=== PATIENT | female | born 1985 | race Caucasian/White ===

== ENCOUNTER 2016-05-01 13:04 | Emergency (ER) | payer OTHER ==
[2016-05-01 14:37] VITALS: BP 150/84
--- NOTE | 2016-05-01 15:03 | UC ---
Back Pain HPI - HPI Summary HPI Summary: 30 F presents with left neck pain today while doing yoga. It feels better when she doesn't move her neck. She admits to increase in pain throughout the day. She states that her pinky and middle finger fell different but she denies any numbness or tingling. She is left handed. She denies any trauma to the area. She took 600 mg ibuprofen. PMH endometriosis - History of Current Complaint Chief Complaint: UC Stated Complaint: UPPER BACK PAIN Time Seen by Provider: 05/01/16 14:40 Hx Last Menstrual Period: 04/24/16 - Allergies/Home Medications Allergies/Adverse Reactions: Allergies Allergy/AdvReac Type Severity Reaction Status Date / Time No Known Drug Allergy Allergy Unknown Verified 06/09/15 08:55 Reaction Details HAYFEVER Allergy Unknown Uncoded 05/01/16 14:29 Reaction Details PMH/Surg Hx/FS Hx/Imm Hx Endocrine History Of: Denies: Diabetes Cardiovascular History Of: Denies: Hypertension, Congestive Heart Failure GI/ History Of: Denies: Renal Disease Psychological History Of: Reports: Anxiety - ROUTINE AND PRN MEDICATION FOR - Surgical History Surgical History: Yes Surgery Procedure, Year, and Place: Laproscopic removal of two adhesions from pelvic wall, endometriosis- September 2013. WISDOM TEETH REMOVED-REMOVED A TEEN. TONSILLECTOMY-AGE 13 - Family History Known Family History: Negative: Cardiac Disease Family History: NON CONTRIBUTORY - Social History Alcohol Use: Occasionally Alcohol Amount: 2-3 GLASSES Substance Use Type: Marijuana Substance Use Comment - Amount & Last Used: daily Smoking Status (MU): Heavy Every Day Tobacco Smoker Type: Cigarettes Amount Used/How Often: 1/2 PPD Have You Smoked in the Last Year: Yes Household Exposure Type: Cigarettes - Immunization History Most Recent Influenza Vaccination: never Most Recent Tetanus Shot: up to date Review of Systems Constitutional: Negative Respiratory: Negative Cardiovascular: Negative Motor: Decreased ROM - neck due to pain Musculoskeletal: Myalgia - neck All Other Systems Reviewed And Are Negative: Yes Physical Exam Triage Information Reviewed: Yes Appearance: Well-Appearing Vital Signs: Initial Vital Signs Temp 97.9 F 05/01/16 14:31 Pulse 74 05/01/16 14:31 Resp 16 05/01/16 14:31 BP 150/84 05/01/16 14:31 Pulse Ox 100 05/01/16 14:31 Vital Signs Reviewed: Yes ENT: Positive: Normal ENT inspection, Pharynx normal, TMs normal Neck: Positive: Supple, Other: - no midline tenderness, tenderness over trapezius muscle on left side with palpable muscle spasms, decrease ROM of neck due to pain Respiratory: Positive: Lungs clear, Normal breath sounds Cardiovascular: Positive: RRR Musculoskeletal: Positive: Other: - good mica inspector strength, biceps reflex intact, sensation grossly intact, good pulses, capillary refill <2secs, full ROM of elbow, limited of shoulder due to pain Back Pain Course/Dx - Course Course Of Treatment: due to pain not being midline and no trauma discussed xray not necessary, no neuro deficits noted, discussed likely muscle sprain due to occuring during yoga, will treat with short course of muscle relaxers and use ibupforen, encouraged to follow up with primary if no improvement, patient agrees with plan - Differential Dx/Diagnosis Differential Diagnosis/HQI/PQRI: Fracture, Strain, Sprain Provider Diagnoses: neck pain Discharge - Discharge Plan Condition: Good Disposition: HOME Prescriptions: Cyclobenzaprine TAB* [Flexeril TAB*] 10 mg PO TID PRN #8 tab PRN Reason: Pain Patient Education Materials: Cervical Sprain (ED) Referrals: Carol Tom MD [Primary Care Provider] - Additional Instructions: Take muscle relaxers three times a day for 3 days, first dose given urgent care Use ibuprofen or Tylenol for pain every 6 hours ice/heat area, move as much as possible Follow up with primary within 5 days if no improvement Return to urgent care if develop any weakness or any new or worsening symptoms
[2016-05-01] MEDS ORDERED: Cyclobenzaprine TAB* 10 MG PO ONE (15:10)
== END 2016-05-01 15:31 | disposition home or self-care (01) ==
LOC: UCEAST 13:04
DX: M54.2 Cervicalgia (principal); F12.90 Cannabis use, unspecified, uncomplicated; F17.210 Nicotine dependence, cigarettes, uncomplicated
CPT/HCPCS: 99212; A9270-GY; G0463

== ENCOUNTER 2017-04-08 11:32 | Emergency (ER) | payer SELFPAY ==
[2017-04-08 11:59] LABS: ABS Basophils 0 10^3/ul (0-0.2); ABS Eosinophils 0 10^3/ul (0-0.6); ABS Lymphocytes 0.9 10^3/ul (1.0-4.8); ABS Monocytes 0.9 10^3/ul (0-0.8); ABS Neutrophils 17.6 10^3/ul (1.5-7.7); ABS Nucleated RBC 0 10^3/ul; Eosinophil % 0 % (0-6); Hematocrit 39 % (35-47); Hemoglobin 13.3 g/dl (12.0-16.0); Lymphocyte % 4.5 % (25-47); Mean Corpuscular HGB Conc 34 g/dl (31-36); Mean Corpuscular Hemoglobin 32 pg (27-31); Mean Corpuscular Volume 93 fL (80-97); Mean Platelet Volume 8 um3 (7.4-10.4); Nucleated Red Blood Cells % 0; Platelet Count 213 10^3/ul (150-450); Red Blood Count 4.16 10^6/ul (4.0-5.4); Red Cell Distribution Width 13 % (10.5-15); White Blood Count 19.4 10^3/ul (3.5-10.8)
[2017-04-08 12:10] VITALS: BP 138/81
[2017-04-08 12:13] LABS: EGFR Non-African American 95.4 (>60)
--- NOTE | 2017-04-08 13:11 | ED ---
Erika Rodney Julia, scribed for Ramakrishna Case MD on 04/08/17 at 1204 . Complex/Multi-Sys Presentation - HPI Summary HPI Summary: This patient is a 31 year old F BIBA to [facility] due to unexpected at home childbirth around 11:00. EMS reports patient experienced lower abdominal yesterday evening and extreme abdominal pain with vaginal bleeding at 10:30 today. Patient was unaware of and has not received care. Patient states the child "slid out real quick". Patient is /A3, with 2 first trimester miscarriages, and a first trimester surgical . The patient rates the pain 5/10 in severity. - History Of Current Complaint Chief Complaint: EDOBProblems Hx Obtained From: Patient, EMS Onset/Duration: Sudden Onset Timing: Intermittent, Lasting: Location: Pain At: - lower abdomen - Allergies/Home Medications Allergies/Adverse Reactions: Allergies Allergy/AdvReac Type Severity Reaction Status Date / Time No Known Drug Allergy Allergy Unknown Verified 06/09/15 08:55 Reaction Details HAYFEVER Allergy Unknown Uncoded 05/01/16 14:29 Reaction Details PMH/Surg Hx/FS Hx/Imm Hx Endocrine/Hematology History: Reports: Hx Anemia - X 2 IN THE PAST- STATES MORE WHEN WAS YOUNGER Denies: Hx Diabetes Cardiovascular History: Denies: Hx Congestive Heart Failure, Hx Hypertension History: Reports: Other Problems/Disorders - endometriosis Denies: Hx Renal Disease Sensory History: Denies: Hx Contacts or Glasses, Hx Hearing Aid Opthamlomology History: Denies: Hx Contacts or Glasses Psychiatric History: Reports: Hx Anxiety - ROUTINE AND PRN MEDICATION FOR Denies: Hx Eating Disorder, Hx of Violent Episodes Against Others - Surgical History Surgery Procedure, Year, and Place: Laproscopic removal of two adhesions from pelvic wall, endometriosis- September 2013. WISDOM TEETH REMOVED-REMOVED A TEEN. TONSILLECTOMY-AGE 13 Hx Anesthesia Reactions: No - Immunization History Date of Tetanus Vaccine: unknown Infectious Disease History: Yes Infectious Disease History: Reports: Hx Hepatitis - HEPATITIS C, Hx Shingles Denies: Hx Clostridium Difficile, Hx Human Immunodeficiency Virus (HIV), Hx of Known/Suspected MRSA, Hx Tuberculosis, Hx Known/Suspected VRE, Hx Known/ Suspected VRSA, History Other Infectious Disease, Traveled Outside the [place] in Last 30 Days - Family History Known Family History: Negative: Cardiac Disease Family History: NON CONTRIBUTORY - Social History Alcohol Use: Occasionally Alcohol Amount: 2-3 GLASSES a week Hx Substance Use: Yes Substance Use Type: Reports: Marijuana Substance Use Comment - Amount & Last Used: daily Hx Tobacco Use: Yes Smoking Status (MU): Light Every Day Tobacco Smoker Type: Cigarettes Amount Used/How Often: 1/2 PPD Have You Smoked in the Last Year: Yes Review of Systems Negative: Fever Positive: Abdominal Pain Genitourinary: Other - unexpected childbirth All Other Systems Reviewed And Are Negative: Yes Physical Exam - Summary Physical Exam Summary: Appearance: The patient is well-nourished in no acute distress and in no acute pain. Patient appears non-toxic. Skin: The skin is warm and dry and skin color reflects adequate perfusion. HEENT: The head is normocephalic and atraumatic. The pupils are equal and reactive. The conjunctivae are clear and without drainage. Nares are patent and without drainage. Mouth reveals moist mucous membranes and the throat is without erythema and exudate. The external ears are intact. The ear canals are patent and without drainage. The tympanic membranes are intact. Neck: the neck is supple with full range of motion and non-tender. There are no carotid bruits. There is no neck vein distension. Respiratory: Chest is non-tender. Lungs are clear to auscultation and breath sounds are symmetrical and equal. Cardiovascular: Heart is regular rate and rhythm. There is no murmur or rub auscultated. There is no peripheral edema and pulses are symmetrical and equal. Abdomen: The abdomen is soft and non-tender. There are normal bowel sounds heard in all four quadrants and there is no organomegaly palpated. Uterus is firm and tender located 4cm below umbilicus. Musculoskeletal: There is no back tenderness noted. Extremities are non-tender with full range of motion. There is good capillary refill. There is no peripheral edema or calf tenderness elicited. Neurological: Patient is alert and oriented to person, place and time. The patient has symmetrical motor strength in all four extremities. Cranial nerves are grossly intact. Deep tendon reflexes are symmetrical and equal in all four extremities. Psychiatric: The patient has an appropriate affect and does not exhibit any anxiety or depression. Triage Information Reviewed: Yes Vital Signs On Initial Exam: Initial Vitals Temp Pulse Resp BP Pulse Ox 99.1 F 73 18 135/98 99 04/08/17 11:41 04/08/17 11:41 04/08/17 11:41 04/08/17 11:41 04/08/17 11:41 Vital Signs Reviewed: Yes - David Coma Scale Coma Scale Total: 15 Diagnostics - Vital Signs Vital Signs Temp Pulse Resp BP Pulse Ox 04/08/17 11:41 99.1 F 73 18 135/98 99 - Laboratory Lab Results: Lab Results 04/08/17 04/08/17 04/08/17 Range/Units 11:32 11:32 11:32 WBC 19.4 H (3.5-10.8) 10^3/ul RBC 4.16 (4.0-5.4) 10^6/ul Hgb 13.3 (12.0-16.0) g/dl Hct 39 (35-47) % MCV 93 (80-97) fL MCH 32 H (27-31) pg MCHC 34 (31-36) g/dl RDW 13 (10.5-15) % Plt Count 213 (150-450) 10^3/ul MPV 8 (7.4-10.4) um3 Neut % (Auto) 90.6 H (38-83) % Lymph % (Auto) 4.5 L (25-47) % [place] % (Auto) 4.7 (1-9) % Eos % (Auto) 0 (0-6) % Baso % (Auto) 0.2 (0-2) % Absolute Neuts (auto) 17.6 H (1.5-7.7) 10^3/ul Absolute Lymphs (auto) 0.9 L (1.0-4.8) 10^3/ul Absolute Monos (auto) 0.9 H (0-0.8) 10^3/ul Absolute Eos (auto) 0 (0-0.6) 10^3/ul Absolute Basos (auto) 0 (0-0.2) 10^3/ul Absolute Nucleated RBC 0 10^3/ul Nucleated RBC % 0 Sodium 134 (133-145) mmol/L Potassium 3.7 (3.5-5.0) mmol/L Chloride 103 (101-111) mmol/L Carbon Dioxide 23 (22-32) mmol/L Anion Gap 8 (2-11) mmol/L BUN 7 (6-24) mg/dL Creatinine 0.71 (0.51-0.95) mg/dL Est GFR ( Amer) 122.7 (>60) Est GFR (Non-Af Amer) 95.4 (>60) BUN/Creatinine Ratio 9.9 (8-20) Glucose 114 H (70-100) mg/dL Calcium 9.0 (8.6-10.3) mg/dL Total Bilirubin 0.60 (0.2-1.0) mg/dL AST 12 L (13-39) U/L ALT 8 (7-52) U/L Alkaline Phosphatase 104 (34-104) U/L Total Protein 6.7 (6.4-8.9) g/dL Albumin 3.6 (3.2-5.2) g/dL Globulin 3.1 (2-4) g/dL Albumin/Globulin Ratio 1.2 (1-3) TSH 1.32 (0.34-5.60) mcIU/mL Blood Type O Positive Antibody Screen Negative Result Diagrams: 04/08/17 11:32 04/08/17 11:32 Lab Statement: Any lab studies that have been ordered have been reviewed, and results considered in the medical decision making process. Complex Multi-Symp Course/Dx Course Of Treatment: Ms. Sim delivered a baby at home about 45 minutes prior to arrival. She was nontoxic in appearance, not bleeding with the cord protruding on arrival. Her abd was soft, her uterus was palpable 4-5 cms below the umbilicus and firm and tender. She was admitted to OB wor delivery of her placenta with the concern that she may have significant bleeding given the amoun of time since delivery. - Diagnoses Provider Diagnoses: FTND (full term normal delivery) - Physician Notifications Discussed Care Of Patient With: Dr. Wilcox Discharge - Discharge Plan Condition: Stable Disposition: ADMITTED TO [facility] Referrals: Carol Tom MD [Primary Care Provider] - The documentation as recorded by the Erika guerrier Julia accurately reflects the service I personally performed and the decisions made by me, Ramakrishna Case MD.
== END 2017-04-08 11:53 | disposition short-term general hospital (02) ==
LOC: ED 11:32
DX: O80 Encounter for full-term uncomplicated delivery (principal); Z37.0 Single live birth
CPT/HCPCS: 36415; 80053; 84443; 85025; 86592; 86703; 86850; 86900; 86901; 87340; 99282

== ENCOUNTER 2017-04-08 11:58 | Inpatient (IN) | payer SELFPAY ==
[2017-04-08] MEDS ORDERED: Dibucaine 1% 28.35 GM TUBE PR PRN (12:07)
[2017-04-08] MEDS ORDERED: Witch Hazel PAD* JAR TOPICAL PRN (12:07)
[2017-04-08] MEDS ORDERED: Tetan/Diph/Pertus SYR(Tdap)* 0.5 ML SYR(BOOSTRIX) use SYR IM ONE (12:07)
[2017-04-08] MEDS ORDERED: Acetaminophen TAB* 325 MG PO PRN (12:07)
[2017-04-08] MEDS ORDERED: Glycerin ADULT SUPP PR PRN (12:07)
[2017-04-08] MEDS ORDERED: Simethicone TAB* 80 MG TAB.CHEW PO SCH (12:30)
[2017-04-08] MEDS ORDERED: Oxytocin in LR* 20 UNITS/1,000 ML BAG IVPB SCH (13:00)
[2017-04-08] MEDS: Docusate CAP* 100 MG PO SCH (17:20)
[2017-04-09] MEDS: Docusate CAP* 100 MG PO SCH ×4 (08:48→20:53)
[2017-04-09 10:23] LABS: ABS Basophils 0 10^3/ul (0-0.2); ABS Eosinophils 0.1 10^3/ul (0-0.6); ABS Neutrophils 10.8 10^3/ul (1.5-7.7); ABS Nucleated RBC 0 10^3/ul; Eosinophil % 0.5 % (0-6); Hematocrit 38 % (35-47); Lymphocyte % 14.1 % (25-47); Mean Corpuscular HGB Conc 34 g/dl (31-36); Mean Corpuscular Hemoglobin 32 pg (27-31); Mean Corpuscular Volume 94 fL (80-97); Mean Platelet Volume 9 um3 (7.4-10.4); Nucleated Red Blood Cells % 0; Platelet Count 216 10^3/ul (150-450); Red Blood Count 4.03 10^6/ul (4.0-5.4); Red Cell Distribution Width 13 % (10.5-15); White Blood Count 13.9 10^3/ul (3.5-10.8)
[2017-04-09] MEDS: Sertraline* 50 MG TAB PO SCH ×2 (13:16→18:00)
[2017-04-09] MEDS: Ferrous Gluconate TAB* 324 MG TAB PO SCH ×2 (13:17→21:00)
[2017-04-09] MEDS: Ibuprofen TAB* 600 MG PO PRN (15:03)
[2017-04-09] MEDS ORDERED: Mouth Piece, Nicotine* 1 EACH CARTRIDGE INH ONE (21:00)
[2017-04-09] MEDS ORDERED: Nicotine Inhaler* 10 MG AMP Q2H PRN CRAVING INH (21:00)
[2017-04-10] MEDS: Ibuprofen TAB* 600 MG PO PRN ×3 (00:17→23:42)
[2017-04-10] MEDS: Ferrous Gluconate TAB* 324 MG TAB PO SCH (09:39)
[2017-04-10] MEDS: Docusate CAP* 100 MG PO SCH ×3 (09:42→23:42)
[2017-04-10] MEDS ORDERED: Influenza VAC *QUAD* 2017-18* 0.5 ML SYRINGE IM ONE (18:59)
[2017-04-11 03:46] VITALS: BP 128/64
== END 2017-04-10 23:59 | disposition home or self-care (01) | DRG 774 ==
LOC: MCHOB 11:58
PROVIDERS: ADMIT Obstetrics & Gynecology; ATTEND Obstetrics & Gynecology
PROC: 10E0XZZ Delivery of Products of Conception, External Approach (ICD-10-PCS; principal; 2017-04-08)
DX: O73.0 Retained placenta without hemorrhage (principal); Z3A.40 40 weeks gestation of pregnancy
CPT/HCPCS: 36415; 80307; 85025; 86703; 86762; 88307; 90686; 90715; A9270-GY

== ENCOUNTER 2018-06-28 09:35 | Emergency (ER) | payer MEDICAID, OTHER ==
--- NOTE | 2018-06-28 10:25 | ED ---
Abdominal Pain/Female - HPI Summary HPI Summary: This patient is a 32 year old F brought in by ambulance with a chief complaint of constant RUQ pain since 22:00 yesterday. The patient rates the pain 10/10 in severity. Symptoms not alleviated by Ibuprofen. Patient reports multiple episodes of vomiting, chills, lightheadedness, and weakness. Patient denies diarrhea. The patient thinks that this might be an exacerbation of her endometriosis. She had one episode of emesis while in the ED. NKDA. PMHX Endometriosis. - History of Current Complaint Chief Complaint: EDAbdPain Stated Complaint: ABD PAIN PER EMS Time Seen by Provider: 06/28/18 10:11 Hx Obtained From: Patient Hx Last Menstrual Period: 04/24/16 Onset/Duration: Sudden Onset, Lasting Hours Timing: Constant Severity Currently: Severe Pain Intensity: 10 Pain Scale Used: 0-10 Numeric Location: Diffuse Alleviating Factor(s): Nothing Associated Signs and Symptoms: Positive: Vomiting. Negative: Diarrhea Allergies/Adverse Reactions: Allergies Allergy/AdvReac Type Severity Reaction Status Date / Time HAYFEVER Allergy Unknown Uncoded 05/01/16 14:29 Reaction Details PMH/Surg Hx/FS Hx/Imm Hx Endocrine/Hematology History: Reports: Hx Anemia - X 2 IN THE PAST- STATES MORE WHEN WAS YOUNGER, Other Endocrine/Hematological Disorders - endometriosis Denies: Hx Diabetes Cardiovascular History: Denies: Hx Congestive Heart Failure, Hx Hypertension History: Denies: Hx Renal Disease Sensory History: Denies: Hx Contacts or Glasses, Hx Hearing Aid Opthamlomology History: Denies: Hx Contacts or Glasses Psychiatric History: Reports: Hx Anxiety - ROUTINE AND PRN MEDICATION FOR Denies: Hx Eating Disorder, Hx of Violent Episodes Against Others - Surgical History Surgery Procedure, Year, and Place: Laproscopic removal of two adhesions from pelvic wall, endometriosis- September 2013. WISDOM TEETH REMOVED-REMOVED A TEEN. TONSILLECTOMY-AGE 13 Hx Anesthesia Reactions: No - Immunization History Date of Tetanus Vaccine: unknown Infectious Disease History: No Infectious Disease History: Reports: Hx Hepatitis - HEPATITIS C, Hx Shingles Denies: Hx Clostridium Difficile, Hx Human Immunodeficiency Virus (HIV), Hx of Known/Suspected MRSA, Hx Tuberculosis, Hx Known/Suspected VRE, Hx Known/ Suspected VRSA, History Other Infectious Disease, Traveled Outside the [place] in Last 30 Days - Family History Known Family History: Negative: Cardiac Disease Family History: NON CONTRIBUTORY - Social History Alcohol Use: Weekly Alcohol Amount: 2-3 GLASSES a week Hx Substance Use: Yes Substance Use Type: Reports: Marijuana Substance Use Comment - Amount & Last Used: daily Hx Tobacco Use: Yes Smoking Status (MU): Light Every Day Tobacco Smoker Type: Cigarettes Amount Used/How Often: 1/2 PPD Have You Smoked in the Last Year: No Review of Systems Positive: Chills Positive: Abdominal Pain, Vomiting. Negative: Diarrhea Neurological: Other - lightheaded Positive: Weakness All Other Systems Reviewed And Are Negative: Yes Physical Exam - Summary Physical Exam Summary: Appearance: Well appearing, no pain distress Skin: warm, dry, reflects adequate perfusion Head/face: normal Eyes: EOMI, LUZMARIA ENT: normal Neck: supple, non-tender Respiratory: CTA, breath sounds present Cardiovascular: RRR, pulses symmetrical Abdomen: diffuse abdominal tenderness Musculoskeletal: normal, strength/ROM intact Neuro: normal, sensory motor intact, A&Ox3 Triage Information Reviewed: Yes Vital Signs On Initial Exam: Initial Vitals Temp Pulse Resp BP Pulse Ox 97.6 F 77 25 139/111 98 06/28/18 09:37 06/28/18 09:37 06/28/18 09:37 06/28/18 09:37 06/28/18 09:37 Vital Signs Reviewed: Yes Diagnostics - Vital Signs Vital Signs Temp Pulse Resp BP Pulse Ox 06/28/18 09:54 139/111 06/28/18 09:37 97.6 F 77 25 139/111 98 - Laboratory Result Diagrams: 06/28/18 10:37 06/28/18 10:37 Lab Statement: Any lab studies that have been ordered have been reviewed, and results considered in the medical decision making process. - CT Abd/Pelvis CT Interpretation Completed By: Radiologist Summary of CT Findings: Normal appendix. No other masses or fluid collections are noted. There is a right ovarian cyst measuring up to 2.2 cm. ED physician has reviewed this report Re-Evaluation - Re-Evaluation First Eval Re-Evaluation Time: 13:00 Comment: The patient is demanding dilaudid and refusing to do her US. She wants to leave AMA. Abdominal Pain Fem Course/Dx - Course Course Of Treatment: This patient is a 32 year old F brought in by ambulance with a chief complaint of constant RUQ pain since 22:00 yesterday. The patient rates the pain 10/10 in severity. Symptoms not alleviated by Ibuprofen. Patient reports multiple episodes of vomiting, chills, lightheadedness, and weakness. Patient denies diarrhea. CT Abd/pelvis reveals, per radiologist, Normal appendix. No other masses or fluid collections are noted. There is a. right ovarian cyst measuring up to 2.2 cm. Bloodwork/UA obtained. In the ED course the patient was given IV fluids, Morphine, Diphenhydramine, Haloperidol, Iohexol , Metoclopramide, and Ondansetron. Patient left against medical advice. reused further work up demanding dilaudid - Diagnoses Differential Diagnosis: Positive: Appendicitis, Diverticulitis, Ovarian Cyst, Pancreatitis, Renal Colic, Urinary Tract Infection Provider Diagnoses: Abdominal pain Discharge - Sign-Out/Discharge Documenting (check all that apply): Patient Departure - discharge, AMA Patient Received Moderate/Deep Sedation with Procedure: No - Discharge Plan Condition: Fair Disposition: AGAINST MEDICAL ADVICE Patient Education Materials: Abdominal Pain (ED) Referrals: Carol Tom MD [Primary Care Provider] - Additional Instructions: RETURN TO THE EMERGENCY DEPARTMENT FOR WORSENING SYMPTOMS. - Billing Disposition and Condition Condition: FAIR Disposition: Against Medical Advice - Attestation Statements Document Initiated by Scribe: Yes Documenting Scribe: Dong Cabezas Provider For Whom Scribe is Documenting (Include Credential): Solo Marx MD Scribe Attestation: Dong Rodney, scribed for Solo Marx MD on 06/28/18 at 1327. Scribe Documentation Reviewed: Yes Provider Attestation: The documentation as recorded by the Dong guerrier accurately reflects the service I personally performed and the decisions made by Solo bridges MD Status of Scribe Document: Viewed
[2018-06-28] MEDS ORDERED: NS 0.9% 1000 ML** 1,000 ML IV ONE (10:26)
[2018-06-28] MEDS ORDERED: Ondansetron INJ* 2 MG/ML VIAL IV ONE (10:27)
[2018-06-28] MEDS ORDERED: Morphine 10 MG/ML VIAL (1 ml) IV ONE (10:27)
[2018-06-28 10:54] LABS: ABS Basophils 0.1 10^3/ul (0-0.2); ABS Eosinophils 0.1 10^3/ul (0-0.6); ABS Nucleated RBC 0 10^3/ul; Eosinophil % 0.6 %; Hematocrit 47 % (33-41); Hemoglobin 16.2 g/dL (12.0-16.0); Mean Corpuscular HGB Conc 34 g/dL (31-36); Mean Corpuscular Hemoglobin 32 pg (27-31); Mean Corpuscular Volume 94 fL (80-97); Mean Platelet Volume 8.8 fL (7.4-10.4); Nucleated Red Blood Cells % 0; Platelet Count 303 10^3/uL (150-450); Red Blood Count 5.05 10^6 /uL (3.70-4.87); Red Cell Distribution Width 13 % (10.5-15); White Blood Count 20.2 10^3/uL (3.5-10.8)
[2018-06-28 11:10] LABS: ALT 9 U/L (7-52); AST 16 U/L (13-39); Albumin/Globulin Ratio 1.7 (1-3); Alkaline Phosphatase 63 U/L (34-104); Anion Gap 18 mmol/L (2-11); BUN/Creatinine Ratio 18.8 (8-20); Blood Urea Nitrogen 16 mg/dL (6-24); CO2 Carbon Dioxide 16 mmol/L (22-32); Chloride 106 mmol/L (101-111); EGFR African American 93.2 (>60); Glucose 203 mg/dL (70-100); Potassium 3.7 mmol/L (3.5-5.0); Sodium 140 mmol/L (135-145)
[2018-06-28 11:11] LABS: HCG Pregnancy < 0.60 mIU/mL
[2018-06-28] MEDS ORDERED: Metoclopramide IV* 5 MG/ML 2 ML VIAL IV ONE (11:26)
[2018-06-28] MEDS ORDERED: Metoclopramide IV* 5 MG/ML 2 ML VIAL ONE (11:27)
[2018-06-28] MEDS ORDERED: Iohexol 300* (CONTRAST) 10 ML SDV IV ONE (11:59)
[2018-06-28] MEDS ORDERED: Morphine 4 MG/ML VIAL (1 ml) 4 MG/ML VIAL IV STA (12:01)
[2018-06-28] MEDS ORDERED: Haloperidol INJ IV/IM* 5 MG/ML AMP IM ONE (12:03)
[2018-06-28] MEDS ORDERED: diPHENhydraMINE IV* 50 MG/ML 1 ml VIAL (BENADRYL) IM ONE (12:04)
[2018-06-28 12:06] VITALS: BP 165/99
[2018-06-28 13:47] LABS: Urine Appearance Clear; Urine Bilirubin Negative (Negative); Urine Blood Negative (Negative); Urine Color Straw; Urine Glucose 2+(150 mg/dL) (Negative); Urine Ketones 2+ (Negative); Urine Nitrite Negative (Negative); Urine Protein Negative (Negative); Urine Specific Gravity 1.045 (1.010-1.030); Urine Urobilinogen Negative (Negative)
== END 2018-06-28 13:10 | disposition left against medical advice (07) ==
LOC: ED 09:35
DX: R10.11 Right upper quadrant pain (principal); N83.201 Unspecified ovarian cyst, right side; B19.20 Unspecified viral hepatitis C without hepatic coma; F17.210 Nicotine dependence, cigarettes, uncomplicated; F41.9 Anxiety disorder, unspecified; Z53.21 Procedure and treatment not carried out due to patient leaving prior to being seen by health care provider
CPT/HCPCS: 36415; 74177; 80053; 81003; 83690; 84702; 85025; 96361; 96372; 96374; 96375; 96376; 99283; J1200; J1630; J2270; J2405; J2765; Q9967

== ENCOUNTER 2019-02-10 19:35 | Emergency (ER) | payer SELFPAY ==
[2019-02-10] MEDS ORDERED: Ondansetron INJ* 2 MG/ML VIAL IV ONE (19:44)
[2019-02-10] MEDS ORDERED: Morphine 4 MG/ML VIAL (1 ml) 4 MG/ML VIAL IV ONE (19:44)
[2019-02-10] MEDS ORDERED: Morphine 4 MG/ML VIAL (1 ml) 4 MG/ML VIAL IV PRN (19:44)
[2019-02-10] MEDS ORDERED: Ketorolac INJ* 30 MG/ML 1 ML VIAL IV PUSH ONE (19:44)
--- NOTE | 2019-02-10 19:47 | ED ---
Abdominal Pain/Female - HPI Summary HPI Summary: Patient is a 33 y/o F presenting to the ED for a chief complaint of diffuse abdominal pain that began at 09:00 on 02/10/19. Patient describes the abdominal pain as a tearing and sharp sensation which worsened at 18:00. At that time, patient had nausea and vomiting. Patient denies dysuria, headache, or fever. Patient denies any aggravating or alleviating factors. Patient has a PMHx of endometriosis and describes the current pain as similar to pain associated with endometriosis. Patient has a Mirena inserted and has not had a menstrual period for the last 4 years. Patient admits a PSHx of laparoscopic surgery, but denies a PSHx of cholecystectomy or appendectomy. Patient admits tobacco use. - History of Current Complaint Chief Complaint: EDAbdPain Stated Complaint: ABD PAIN PER EMS Time Seen by Provider: 02/10/19 19:42 Hx Obtained From: Patient Hx Last Menstrual Period: 04/24/16 Onset/Duration: Sudden Onset, Still Present Timing: Constant Severity Initially: Moderate Severity Currently: Severe Pain Scale Used: 0-10 Numeric Location: Diffuse Aggravating Factor(s): Nothing Alleviating Factor(s): Nothing Associated Signs and Symptoms: Negative: Urinary Symptoms - Negative dysuria Allergies/Adverse Reactions: Allergies Allergy/AdvReac Type Severity Reaction Status Date / Time No Known Drug Allergies Allergy See Comment Verified 02/10/19 21:23 HAYFEVER Allergy Unknown Uncoded 05/01/16 14:29 Reaction Details PMH/Surg Hx/FS Hx/Imm Hx Previously Healthy: Yes Endocrine/Hematology History: Reports: Hx Anemia - X 2 IN THE PAST- STATES MORE WHEN WAS YOUNGER, Other Endocrine/Hematological Disorders - endometriosis Denies: Hx Diabetes Cardiovascular History: Denies: Hx Congestive Heart Failure, Hx Hypertension History: Reports: Other Problems/Disorders - Endometriosis Denies: Hx Renal Disease Sensory History: Denies: Hx Contacts or Glasses, Hx Legally Blind, Hx Deafness, Hx Hearing Aid Opthamlomology History: Denies: Hx Contacts or Glasses, Hx Legally Blind EENT History: Denies: Hx Deafness Psychiatric History: Reports: Hx Anxiety - ROUTINE AND PRN MEDICATION FOR Denies: Hx Eating Disorder, Hx of Violent Episodes Against Others - Surgical History Surgical History: Yes Surgery Procedure, Year, and Place: Laproscopic removal of two adhesions from pelvic wall, endometriosis- September 2013. WISDOM TEETH REMOVED-REMOVED A TEEN. TONSILLECTOMY-AGE 13 Hx Anesthesia Reactions: No - Immunization History Date of Tetanus Vaccine: unknown Infectious Disease History: Reports: Hx Hepatitis - HEPATITIS C, Hx Shingles Denies: Hx Clostridium Difficile, Hx Human Immunodeficiency Virus (HIV), Hx of Known/Suspected MRSA, Hx Tuberculosis, Hx Known/Suspected VRE, Hx Known/ Suspected VRSA, History Other Infectious Disease - Family History Known Family History: Negative: Cardiac Disease - Social History Occupation: Employed Full-time Lives: With Family Alcohol Use: Weekly Alcohol Amount: 2-3 GLASSES a week Hx Substance Use: Yes Substance Use Type: Reports: Marijuana Substance Use Comment - Amount & Last Used: daily Hx Tobacco Use: Yes Smoking Status (MU): Light Every Day Tobacco Smoker Type: Cigarettes Amount Used/How Often: 1/2 PPD Have You Smoked in the Last Year: No Review of Systems Negative: Fever Positive: Abdominal Pain - Diffuse, Vomiting, Nausea Negative: dysuria Negative: Headache All Other Systems Reviewed And Are Negative: Yes Physical Exam - Summary Physical Exam Summary: Appearance: Well-appearing, Well-nourished. Mildly diaphoretic female lying in the stretcher with obvious pain. Skin: Warm, no obvious rash, mildly diaphoretic, pale. Eyes: sclera anicteric, no conjunctival pallor ENT: mucous membranes moist, pharynx appears normal Neck: Supple, nontender Respiratory: Clear to auscultation, no signs of respiratory distress Cardiovascular: Normal S1, S2. No murmurs. Normal distal pulses in tibial and radial bilaterally. Abdomen: Soft, normal active bowel sounds present. Generalized abdominal tenderness, more in the LLQ. Difficult to get patient relaxed for exam Musculoskeletal: Normal, Strength/ROM Intact Neurological: A&Ox3, awake and alert, mentation is normal, speech is fluent and appropriate Psychiatric: affect is normal, does not appear anxious or depressed Triage Information Reviewed: Yes Vital Signs Reviewed: Yes Procedures - Sedation Patient Received Moderate/Deep Sedation with Procedure: No Diagnostics - Laboratory Result Diagrams: 02/10/19 20:32 02/10/19 20:32 Lab Statement: Any lab studies that have been ordered have been reviewed, and results considered in the medical decision making process. - Ultrasound Transvaginal US Ultrasound Interpretation Completed By: Radiologist Summary of Ultrasound Findings: Transvaginal US IMPRESSION: Dominant follicle left ovary 1.6 cm. No adnexal mass. Color flow and vascular waveforms are documented bilaterally. Reviewed by ED physician. Abdominal Pain Fem Course/Dx - Course Course Of Treatment: Patient is a 33 y/o F presenting to the ED for a chief complaint of diffuse abdominal pain that began at 09:00 on 02/10/19. Patient describes the abdominal pain as a tearing and sharp sensation which worsened at 18:00. At that time, patient had nausea and vomiting. Patient denies dysuria. Patient denies any aggravating or alleviating factors. Patient has a PMHx of endometriosis and describes the current pain as similar to pain associated with endometriosis. Patient has a Mirena inserted and has not had a menstrual period for the last 4 years. Patient admits a PSHx of laparoscopic surgery, but denies a PSHx of cholecystectomy or appendectomy. Patient admits tobacco use. On exam , female lying in the stretcher with obvious pain, generalized abdominal pain, more in the LLQ, difficult to get patient relaxed for exam, mild diaphoretic, pale. In the ED course, patient was given morphine 4 mg IV, ketorolac 10 mg IV , ondansetron 8 mg IV, and prochlorperazine 10 mg IV. Laboratory abnormal findings: WBC 16.9, RBC 4.95, MCH 32, absolute neuts 14.6, absolute monos 0.9, carbon dioxide 17, anion gap 13, glucose 163, total bilirubin 1.10, lipase <10, urine protein 2+, urine ketones 2+, urine leukocyte esterase trace, urine WBC 1+ , urine RBC 1+, urine squamous epith cells present, urine bacteria 2+, urine cannabinoids screen presumptive positive. Transvaginal US IMPRESSION: Dominant follicle left ovary 1.6 cm. No adnexal mass. Color flow and vascular waveforms are documented bilaterally. Patient will be discharged with a diagnosis of endometriosis and abdominal pain. Follow up with PCP in 2 days. - Diagnoses Provider Diagnoses: Endometriosis, Abdominal pain Discharge ED - Sign-Out/Discharge Documenting (check all that apply): Patient Departure - Discharge - Discharge Plan Condition: Good Disposition: HOME Prescriptions: Ondansetron ODT TAB* [Zofran 4 MG Odt TAB*] 8 mg PO Q6H PRN #12 tab.odt PRN Reason: Nausea Patient Education Materials: Irritable Bowel Syndrome (ED), Acute Abdominal Pain (ED) Referrals: Carol Tom MD [Medical Doctor] - As Soon As Possible Additional Instructions: Your blood work did not show any major concerns, and your ultrasound was unremarkable as well. Endometriosis can be very difficult if not impossible to diagnose on the kinds of tests we have at our disposal here in the ED. 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 I have prescribed some zofran to help with the nausea. - Billing Disposition and Condition Condition: GOOD Disposition: Home - Attestation Statements Document Initiated by John: Yes Documenting Scribe: Kirstin Brito Provider For Whom John is Documenting (Include Credential): Ramakrishna Holland MD Scribe Attestation: I, Kirstin Brito, scribed for Ramakrishna Holland MD on 02/13/19 at 1939. Scribe Documentation Reviewed: Yes Provider Attestation: The documentation as recorded by the Kirstin guerrier accurately reflects the service I personally performed and the decisions made by me, Ramakrishna Holland MD Status of Scribe Document: Viewed
[2019-02-10 20:28] LABS: Urine Appearance Cloudy; Urine Bacteria 2+ (Absent); Urine Bilirubin Negative (Negative); Urine Blood Negative (Negative); Urine Color Amber; Urine Glucose Negative (Negative); Urine Ketones 2+ (Negative); Urine Nitrite Negative (Negative); Urine Protein 2+(100 mg/dL) (Negative); Urine Red Blood Cell 1+(3-5/hpf) (Absent); Urine Specific Gravity 1.029 (1.010-1.030); Urine Squamous Epithelial Cell Present (Absent); Urine Urobilinogen Negative (Negative); Urine White Blood Cell 1+(6-10/hpf) (Absent)
[2019-02-10 20:36] LABS: ABS Basophils 0.1 10^3/ul (0-0.2); ABS Lymphocytes 1.3 10^3/ul (1.0-4.8); ABS Monocytes 0.9 10^3/ul (0-0.8); ABS Neutrophils 14.6 10^3/ul (1.5-7.7); Eosinophil % 0.2 %; Hematocrit 46 % (35-47); Hemoglobin 15.6 g/dL (12.0-16.0); Lymphocyte % 7.9 %; Mean Corpuscular HGB Conc 34 g/dL (31-36); Mean Corpuscular Hemoglobin 32 pg (27-31); Mean Corpuscular Volume 93 fL (80-97); Mean Platelet Volume 8.5 fL (7.4-10.4); Nucleated Red Blood Cells % 0.1; Platelet Count 219 10^3/uL (150-450); Red Blood Count 4.95 10^6 /uL (3.70-4.87); Red Cell Distribution Width 13 % (10-15); White Blood Count 16.9 10^3/uL (3.5-10.8)
[2019-02-10 20:55] LABS: Urine Benzodiazepine Screen None Detected (None Detect); Urine Opiates Screen None Detected (None Detect)
[2019-02-10] MEDS ORDERED: PROCHLORPERAZINE INJ 5 MG/ML 2 ML VIAL IV ONE (21:00)
[2019-02-10 21:01] LABS: HCG Pregnancy 0.61 mIU/mL
[2019-02-10 21:04] LABS: ALT 7 U/L (7-52); AST 14 U/L (13-39); Albumin 4.7 g/dL (3.2-5.2); Albumin/Globulin Ratio 1.6 (1-3); Alkaline Phosphatase 56 U/L (34-104); Anion Gap 13 mmol/L (2-11); BUN/Creatinine Ratio 15.7 (8-20); Blood Urea Nitrogen 13 mg/dL (6-24); C Reactive Protein 1.54 mg/L (<8.01); CO2 Carbon Dioxide 17 mmol/L (22-32); Calcium 9.8 mg/dL (8.6-10.3); Chloride 109 mmol/L (101-111); EGFR African American 95.2 (>60); EGFR Non-African American 78.7 (>60); Globulin 2.9 g/dL (2-4); Glucose 163 mg/dL (70-100); Potassium 3.6 mmol/L (3.5-5.0); Sodium 139 mmol/L (135-145); Total Protein 7.6 g/dL (6.4-8.9)
[2019-02-10] MEDS ORDERED: Ondansetron ODT TAB* 4 MG SL ONE (23:28)
[2019-02-10 23:38] VITALS: BP 121/69
== END 2019-02-10 23:37 | disposition home or self-care (01) ==
LOC: ED 19:35
DX: N80.9 Endometriosis, unspecified (principal); R10.9 Unspecified abdominal pain; R11.2 Nausea with vomiting, unspecified; F17.210 Nicotine dependence, cigarettes, uncomplicated; F41.9 Anxiety disorder, unspecified; Z79.899 Other long term (current) drug therapy
CPT/HCPCS: 36415; 76830; 80053; 80307; 81003; 81015; 83690; 84702; 85025; 86140; 87086; 96365; 96375; 96376; 99284; A9270-GY; J0780; J1885; J2270; J2405

== ENCOUNTER 2019-04-24 07:29 | Emergency (ER) | payer OTHER ==
[2019-04-24] MEDS ORDERED: Ondansetron INJ* 2 MG/ML VIAL IV ONE (07:41)
[2019-04-24] MEDS ORDERED: Morphine 4 MG/ML VIAL (1 ml) 4 MG/ML VIAL IV ONE (07:41)
[2019-04-24 08:02] LABS: Hematocrit 40 % (35-47); Hemoglobin 14.1 g/dL (12.0-16.0); Mean Corpuscular HGB Conc 36 g/dL (31-36); Mean Corpuscular Hemoglobin 32 pg (27-31); Mean Corpuscular Volume 90 fL (80-97); Mean Platelet Volume 8.7 fL (7.4-10.4); Platelet Count 226 10^3/uL (150-450); Red Cell Distribution Width 13 % (10-15); White Blood Count 11.6 10^3/uL (3.5-10.8)
--- NOTE | 2019-04-24 08:05 | ED ---
GI/ HPI - HPI Summary HPI Summary: Patient is a 33 y/o F w/ Hx of endometriosis who presents to [facility] via EMS with chief complaint of lower abdominal pain. Pain initially onset 04/22/19. It has waxed and waned in intensity with a significant exacerbation occurring this morning, 04/24/19. Pain radiates towards upper abdomen. EMS administered 15 mg Toradol with no relief in pain. She states that she followed up with CHRISTIANO Morgan, yesterday on 04/23/19 and was advised to come to ED if pain worsened. Patient claims that her current pain feels similar to her past episodes of endometriosis and notes that she experiences episodes every 1-2 months approximately. Patient reports nausea, decreased appetite, constipation, diaphoresis, and subjective fever but denies vomiting, diarrhea, dysuria, vaginal bleeding and vaginal discharge. She states that she has had fever and elevated white count with previous episodes. Laproscopic surgery was done years ago. Patient is concerned for lesions of her intestines. Last CT ABD/PEL is reported to have been May 2018. Patient states that she has been treating pain with ibuprofen with minimal relief and taking Zofran as well as a laxative. She claims that she has been treated for previous episodes with Dilaudid and requests this medication for pain control. LNMP was years ago, patient states that she does not get a regular period. Patient recently started taking oral control. She notes that she has not been sexually active in the past year. With exception of endometriosis, no PMHx noted. NKDA reported. She smokes cigarettes and uses marijuana but denies alcohol usage. 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 Home medications and allergies are reviewed. - History of Current Complaint Stated Complaint: ABD PAIN PER EMS Hx Obtained From: Patient Hx Last Menstrual Period: 04/24/16 Onset/Duration: Started Days Ago, Still Present, Worse Since Timing: Lasting Days Severity: Severe Current Severity: Severe Location of Pain: Radiates to: - upper abdomen, Other - lower abdomen Associated Signs and Symptoms: Positive: Nausea, Constipation, Fever - subjective, Change in Appetite - decreased, Abdominal Pain, Other: - positive - diaphoresis. Negative: Vomiting, Discharge - vaginal, Diarrhea, Dysuria Additional Signs & Symptoms: Negative: Vaginal Bleeding, Vaginal Discharge Alleviating Factor(s): Nothing - Allergy/Home Medications Allergies/Adverse Reactions: Allergies Allergy/AdvReac Type Severity Reaction Status Date / Time No Known Drug Allergies Allergy See Comment Verified 02/10/19 21:23 HAYFEVER Allergy Unknown Uncoded 05/01/16 14:29 Reaction Details Home Medications: Home Medications Levonorgestrel (IUD) (NF) [Mirena (NF)] 20 mcg IU ONCE 04/24/19 [History Confirmed 04/24/19] PMH/Surg Hx/FS Hx/Imm Hx Endocrine/Hematology History: Reports: Hx Anemia - X 2 IN THE PAST- STATES MORE WHEN WAS YOUNGER, Other Endocrine/Hematological Disorders - endometriosis Denies: Hx Diabetes Cardiovascular History: Denies: Hx Congestive Heart Failure, Hx Hypertension History: Reports: Other Problems/Disorders - Endometriosis Denies: Hx Renal Disease Sensory History: Denies: Hx Contacts or Glasses, Hx Legally Blind, Hx Deafness, Hx Hearing Aid Opthamlomology History: Denies: Hx Contacts or Glasses, Hx Legally Blind Psychiatric History: Reports: Hx Anxiety - ROUTINE AND PRN MEDICATION FOR Denies: Hx Eating Disorder, Hx of Violent Episodes Against Others - Surgical History Surgery Procedure, Year, and Place: Laproscopic removal of two adhesions from pelvic wall, endometriosis- September 2013. WISDOM TEETH REMOVED-REMOVED A TEEN. TONSILLECTOMY-AGE 13 Hx Anesthesia Reactions: No - Immunization History Date of Tetanus Vaccine: unknown Infectious Disease History: Reports: Hx Hepatitis - HEPATITIS C, Hx Shingles Denies: Hx Clostridium Difficile, Hx Human Immunodeficiency Virus (HIV), Hx of Known/Suspected MRSA, Hx Tuberculosis, Hx Known/Suspected VRE, Hx Known/ Suspected VRSA, History Other Infectious Disease - Family History Known Family History: Negative: Cardiac Disease - Social History Alcohol Use: Weekly Alcohol Amount: 2-3 GLASSES a week Hx Substance Use: Yes Substance Use Type: Reports: Marijuana Substance Use Comment - Amount & Last Used: daily Hx Tobacco Use: Yes Smoking Status (MU): Light Every Day Tobacco Smoker Type: Cigarettes Amount Used/How Often: 1/2 PPD Have You Smoked in the Last Year: No Review of Systems Positive: Fever - subjective , Skin Diaphoresis Gastrointestinal: Other - positive - constipation, decreased appetite Positive: Abdominal Pain, Nausea. Negative: Vomiting, Diarrhea Genitourinary: Other - negative - vaginal bleeding, vaginal discharge Negative: dysuria All Other Systems Reviewed And Are Negative: Yes Physical Exam - Summary Physical Exam Summary: Constitutional: Well-developed, Well-nourished, Alert. Patient is crying and rolling around in her bed. Skin: Warm, Dry HENT: Normocephalic; Atraumatic Eyes: Conjunctiva normal Neck: Musculoskeletal ROM normal neck. (-) JVD, (-) Stridor, (-) Tracheal deviation Cardio: Rhythm regular, rate normal, Heart sounds normal; Intact distal pulses; Radial pulses are 2+ and symmetric. (-) Murmur Pulmonary/Chest wall: Effort normal. (-) Respiratory distress, (-) Wheezes, (-) Rales Abd: Soft, Diffuse tenderness, worse at LUQ; (-) Distension, (-) Guarding, (-) Rebound Musculoskeletal: (-) Edema Lymph: (-) Cervical adenopathy Neuro: Alert, Oriented x3 Psych: Mood and affect Normal Triage Information Reviewed: Yes Vital Signs Reviewed: Yes Procedures - Sedation Patient Received Moderate/Deep Sedation with Procedure: No Diagnostics - Laboratory Result Diagrams: 04/24/19 07:46 04/24/19 07:46 Lab Statement: Any lab studies that have been ordered have been reviewed, and results considered in the medical decision making process. - CT ABD/PEL CT CT Interpretation Completed By: Radiologist Summary of CT Findings: IMPRESSION: MILD HEPATOMEGALY WITH FATTY INFILTRATION OF THE LIVER. NO ACUTE CT PATHOLOGY OF THE. VISUALIZED ABDOMEN OR PELVIS. THIS REPORT WAS REVIEWED BY ED PHYSICIAN. Re-Evaluation - Re-Evaluation First Eval Re-Evaluation Time: 08:54 Change: Unchanged Comment: Patient had some response to morphine but states that her pain is still present. When the nurse was administering morphine, patient requested that the medication be "pushed fast". Patient was educated on the dangers of having this medication administered too quickly. Other medications were discussed. Bentyl was offered to the patient. She subsequently became agitated and requested more pain medications. She refused to receive any other PO medications. Patient to receive IV Bentyl. Second Eval Re-Evaluation Time: 10:14 Change: Improved Comment: Patient states that her pain is significantly improved after Bentyl. Third Eval Re-Evaluation Time: 10:36 Comment: Results of workup were discussed, patient to be discharged to home and will follow up with GI and PCP. GIGU Course/Dx - Course Course Of Treatment: Patient is here with severe, diffuse of dull pain. Patient 's been here multiple times for presentation last time in May. Patient has been diagnosed with endometriosis years ago and thinks her symptoms are related to that. Patient was rolling on the stretcher in pain and crying profusely. Patient was requesting Dilaudid and Zofran. Patient was given 4 mg of Zofran and 4 mg of morphine with slight improvement that did not last very long. Patient Zenobia performed which grossly unremarkable. Given patient's diffuse a dull pain, a CT scan was obtained which showed no acute process. Patient then received 20 mg of IM Bentyl with vast improvement in her pain. Patient was discharged on Bentyl and given [facility] referral for PCP. Patient already has a referral for a GI doctor that she is told to continue doing a process 4. - Diagnoses Provider Diagnoses: Left sided abdominal pain Discharge ED - Sign-Out/Discharge Documenting (check all that apply): Patient Departure - discharge - Discharge Plan Condition: Stable Disposition: HOME Prescriptions: Dicyclomine CAP* [Bentyl CAP*] 10 mg PO TID PRN #20 cap PRN Reason: abdominal pain Ondansetron ODT TAB* [Zofran 4 MG Odt TAB*] 4 mg PO Q8H PRN #12 tab.odt PRN Reason: Vomiting Patient Education Materials: Acute Abdominal Pain (ED) Referrals: [facility] [Outside] Additional Instructions: USE THE [facility] TO BECOME ESTABLISHED WITH A PRIMARY CARE PHYSICIAN. USE YOUR ESTABLISHED REFERRAL TO FOLLOW UP WITH A GI DOCTOR. TAKE BENTYL PRESCRIBED. PLEASE RETURN TO ED FOR ANY UNEXPECTED RECTAL OR VAGINAL BLEEDING OR ANY OTHER CONCERNING SYMPTOMS. - Billing Disposition and Condition Condition: STABLE Disposition: Home - Attestation Statements Document Initiated by John: Yes Documenting Scribe: DAVIDSON LOPEZ Provider For Whom John is Documenting (Include Credential): YUSUF GARSIA MD Scribe Attestation: DAVIDSON Rodney, marcied for YUSUF GARSIA MD on 04/24/19 at 9000. Scribe Documentation Reviewed: Yes Provider Attestation: The documentation as recorded by the DAVIDSON guerrier accurately reflects the service I personally performed and the decisions made by me, YUSUF GARSIA MD Status of Scribe Document: Viewed
[2019-04-24 08:09] LABS: ABS Basophils 0.1 10^3/ul (0-0.2); ABS Eosinophils 0.1 10^3/ul (0-0.6); ABS Lymphocytes 1.8 10^3/ul (1.0-4.8); ABS Monocytes 0.8 10^3/ul (0-0.8); ABS Neutrophils 8.8 10^3/ul (1.5-7.7); Eosinophil % 0.9 %; Lymphocyte % 15.7 %; Nucleated Red Blood Cells % 0.1
[2019-04-24 08:13] LABS: ALT 6 U/L (7-52); AST 10 U/L (13-39); Albumin 4.3 g/dL (3.2-5.2); Albumin/Globulin Ratio 1.7 (1-3); Alkaline Phosphatase 52 U/L (34-104); Anion Gap 10 mmol/L (2-11); BUN/Creatinine Ratio 11.8 (8-20); Blood Urea Nitrogen 9 mg/dL (6-24); C Reactive Protein 2.72 mg/L (<8.01); CO2 Carbon Dioxide 20 mmol/L (22-32); Chloride 106 mmol/L (101-111); EGFR African American 105.4 (>60); EGFR Non-African American 87.1 (>60); Globulin 2.6 g/dL (2-4); Glucose 117 mg/dL (70-100); Potassium 3.4 mmol/L (3.5-5.0); Sodium 136 mmol/L (135-145); Total Protein 6.9 g/dL (6.4-8.9)
[2019-04-24 08:19] LABS: HCG Pregnancy < 0.60 mIU/mL
[2019-04-24] MEDS ORDERED: Iohexol 300* (CONTRAST) 10 ML SDV IV ONE (08:34)
[2019-04-24] MEDS: Dicyclomine CAP* 10 MG PO ONE ×2 (08:59→09:20)
[2019-04-24] MEDS ORDERED: DICYCLOMINE HCL* 20 MG/2 ML VIAL IM ONE (09:02)
[2019-04-24 10:28] LABS: Urine Appearance Cloudy; Urine Bilirubin Negative (Negative); Urine Blood Negative (Negative); Urine Color Yellow; Urine Glucose Negative (Negative); Urine Ketones 1+ (Negative); Urine Nitrite Negative (Negative); Urine Protein 1+(30 mg/dL) (Negative); Urine Specific Gravity 1.034 (1.010-1.030); Urine Urobilinogen Negative (Negative)
[2019-04-24] MEDS ORDERED: Dicyclomine CAP* 10 MG PO ONE (10:35)
[2019-04-24 10:43] LABS: Urine Bacteria Absent (Absent); Urine Red Blood Cell 1+(3-5/hpf) (Absent); Urine Squamous Epithelial Cell Present (Absent); Urine White Blood Cell Trace(0-5/hpf) (Absent)
[2019-04-24 10:53] VITALS: BP 130/83
== END 2019-04-24 10:53 | disposition home or self-care (01) ==
LOC: ED 07:29
DX: R10.32 Left lower quadrant pain (principal); F17.210 Nicotine dependence, cigarettes, uncomplicated; F41.9 Anxiety disorder, unspecified; Z86.19 Personal history of other infectious and parasitic diseases; K76.0 Fatty (change of) liver, not elsewhere classified
CPT/HCPCS: 36415; 74177; 80053; 81003; 81015; 83605; 84702; 85025; 86140; 87086; 96372; 96374; 96375; 99283; A9270-GY; J0500; J2270; J2405; Q9967

== ENCOUNTER 2019-04-27 11:39 | Emergency (ER) | payer OTHER ==
[2019-04-27] MEDS ORDERED: Dicyclomine CAP* 10 MG PO ONE (12:26)
[2019-04-27] MEDS ORDERED: Ketorolac TAB * 10 MG TAB PO ONE (12:26)
[2019-04-27] MEDS ORDERED: diPHENhydraMINE PO* 25 MG PO ONE (12:27)
[2019-04-27] MEDS ORDERED: Ketorolac *IM* INJ* 60 MG/2 ML VIAL IM ONE (12:33)
[2019-04-27 12:54] LABS: ABS Eosinophils 0.1 10^3/ul (0-0.6); ABS Lymphocytes 1.6 10^3/ul (1.0-4.8); ABS Monocytes 0.5 10^3/ul (0-0.8); ABS Neutrophils 6.4 10^3/ul (1.5-7.7); Eosinophil % 1.3 %; Hematocrit 38 % (35-47); Hemoglobin 13.3 g/dL (12.0-16.0); Lymphocyte % 18.2 %; Mean Corpuscular HGB Conc 35 g/dL (31-36); Mean Corpuscular Hemoglobin 32 pg (27-31); Mean Corpuscular Volume 91 fL (80-97); Mean Platelet Volume 8.6 fL (7.4-10.4); Platelet Count 232 10^3/uL (150-450); Red Cell Distribution Width 13 % (10-15); White Blood Count 8.6 10^3/uL (3.5-10.8)
[2019-04-27 13:11] LABS: Albumin 4.1 g/dL (3.2-5.2); Albumin/Globulin Ratio 1.8 (1-3); BUN/Creatinine Ratio 10.7 (8-20); Calcium 9.3 mg/dL (8.6-10.3); EGFR Non-African American 88.5 (>60); Globulin 2.3 g/dL (2-4); Potassium 3.8 mmol/L (3.5-5.0); Total Bilirubin 0.6 mg/dL (0.2-1.0); Total Protein 6.4 g/dL (6.4-8.9)
--- NOTE | 2019-04-27 14:43 | ED ---
Abdominal Pain/Female - HPI Summary HPI Summary: Patient is a 33-year-old female presenting to the ED with severe diffuse abdominal pain. She states she was here a few days ago with negative blood work and negative CT. She states this feels similar to her endometrial pain, however her pain is now diffuse instead of just located in the bilateral lower quadrants. She is concerned with a gallbladder pathology. She states symptoms are not worse or better after eating. Pain is rated at 10/10. She is followed by Dr. Ladd, ELECTROCARDIOGRAPH OPERATOR and saw them 4 days ago. Denies any fevers, sweats, chills , constipation, nausea, vomiting, diarrhea. Patient is tearful on exam and states she is concerned for "lesions on her intestines" from her severe endometriosis. She has been taking ibuprofen at home with minimal relief. Denies any other significant past mental history. Denies known drug allergies. Denies any alcohol use. She states she smokes cigarettes and also uses marijuana. Symptoms improved after her discharge a few days ago, but returned this morning. - History of Current Complaint Chief Complaint: EDAbdMartyin Stated Complaint: ABDOMINAL PAIN PER EMS Time Seen by Provider: 04/27/19 11:43 Hx Obtained From: Patient Hx Last Menstrual Period: 04/24/16 ?: No Onset/Duration: Sudden Onset Timing: Constant Severity Initially: Severe Severity Currently: Moderate Pain Intensity: 4 Pain Scale Used: 0-10 Numeric Location: Diffuse, Other - abd pain Radiates: No Character: Cramping Aggravating Factor(s): Nothing Alleviating Factor(s): Nothing Associated Signs and Symptoms: Positive: Negative - Risk Factors Ectopic Risk Factor: Negative Ovarian Torsion Risk Factor: Negative Allergies/Adverse Reactions: Allergies Allergy/AdvReac Type Severity Reaction Status Date / Time No Known Drug Allergies Allergy See Comment Verified 04/27/19 11:49 HAYFEVER Allergy Unknown Uncoded 04/27/19 11:49 Reaction Details Home Medications: Home Medications Levonorgestrel-Ethin Estradiol [Lessina-28 Tablet] 1 tab PO DAILY 04/27/19 [ History Confirmed 04/27/19] PMH/Surg Hx/FS Hx/Imm Hx Previously Healthy: Yes Endocrine/Hematology History: Reports: Hx Anemia - X 2 IN THE PAST- STATES MORE WHEN WAS YOUNGER, Other Endocrine/Hematological Disorders - endometriosis Denies: Hx Diabetes Cardiovascular History: Denies: Hx Congestive Heart Failure, Hx Hypertension History: Reports: Other Problems/Disorders - Endometriosis Denies: Hx Renal Disease Sensory History: Denies: Hx Contacts or Glasses, Hx Legally Blind, Hx Deafness, Hx Hearing Aid Opthamlomology History: Denies: Hx Contacts or Glasses, Hx Legally Blind Psychiatric History: Reports: Hx Anxiety - ROUTINE AND PRN MEDICATION FOR Denies: Hx Eating Disorder, Hx of Violent Episodes Against Others - Surgical History Surgery Procedure, Year, and Place: Laproscopic removal of two adhesions from pelvic wall, endometriosis- September 2013. WISDOM TEETH REMOVED-REMOVED A TEEN. TONSILLECTOMY-AGE 13 Hx Anesthesia Reactions: No - Immunization History Date of Tetanus Vaccine: unknown Hx Pertussis Vaccination: No Immunizations Up to Date: Yes Infectious Disease History: No Infectious Disease History: Reports: Hx Hepatitis - HEPATITIS C, Hx Shingles Denies: Hx Clostridium Difficile, Hx Human Immunodeficiency Virus (HIV), Hx of Known/Suspected MRSA, Hx Tuberculosis, Hx Known/Suspected VRE, Hx Known/ Suspected VRSA, History Other Infectious Disease, Traveled Outside the [place] in Last 30 Days - Family History Known Family History: Negative: Cardiac Disease Family History: NON CONTRIBUTORY - Social History Occupation: Employed Full-time Lives: With Family Alcohol Use: Rare Alcohol Amount: 2-3 GLASSES a week Hx Substance Use: Yes Substance Use Type: Reports: Marijuana Substance Use Comment - Amount & Last Used: daily Hx Tobacco Use: Yes Smoking Status (MU): Light Every Day Tobacco Smoker Type: Cigarettes Amount Used/How Often: 1/2 PPD Have You Smoked in the Last Year: No Review of Systems Negative: Fever, Chills, Skin Diaphoresis Negative: Palpitations, Chest Pain Negative: Shortness Of Breath, Cough Genitourinary: Negative Positive: no symptoms reported, see HPI Negative: Arthralgia, Myalgia Neurological: Negative All Other Systems Reviewed And Are Negative: Yes Physical Exam Triage Information Reviewed: Yes Vital Signs On Initial Exam: Initial Vitals Temp Pulse Resp BP Pulse Ox 97.6 F 70 22 118/83 98 04/27/19 11:42 04/27/19 11:42 04/27/19 11:42 04/27/19 11:42 04/27/19 11:42 Vital Signs Reviewed: Yes Appearance: Positive: Well-Appearing, Well-Nourished, Pain Distress Skin: Positive: Warm, Skin Color Reflects Adequate Perfusion Neck: Positive: Supple, No Lymphadenopathy Respiratory/Lung Sounds: Positive: Clear to Auscultation, Breath Sounds Present Cardiovascular: Positive: Pulses are Symmetrical in both Upper and Lower Extremities Abdomen Description: Positive: Other: - tenderness throughout Musculoskeletal: Positive: Strength/ROM Intact Neurological: Positive: Speech Normal Psychiatric: Positive: Affect/Mood Appropriate Procedures - Sedation Patient Received Moderate/Deep Sedation with Procedure: No Diagnostics - Vital Signs Vital Signs Temp Pulse Resp BP Pulse Ox 04/27/19 13:42 56 120/74 100 04/27/19 13:14 59 98 04/27/19 13:12 59 130/75 98 04/27/19 12:44 119/82 04/27/19 12:43 67 123/82 98 04/27/19 12:13 61 132/80 04/27/19 12:00 56 96 04/27/19 11:46 69 118/83 99 04/27/19 11:42 97.6 F 74 22 118/83 98 - Laboratory Lab Results: Lab Results 04/27/19 04/27/19 Range/Units 12:48 12:48 WBC 8.6 (3.5-10.8) 10^3/uL RBC 4.20 (3.70-4.87) 10^6 /uL Hgb 13.3 (12.0-16.0) g/dL Hct 38 (35-47) % MCV 91 (80-97) fL MCH 32 H (27-31) pg MCHC 35 (31-36) g/dL RDW 13 (10-15) % Plt Count 232 (150-450) 10^3/uL MPV 8.6 (7.4-10.4) fL Neut % (Auto) 74.0 % Lymph % (Auto) 18.2 % [place] % (Auto) 6.0 % Eos % (Auto) 1.3 % Baso % (Auto) 0.5 % Absolute Neuts (auto) 6.4 (1.5-7.7) 10^3/ul Absolute Lymphs (auto) 1.6 (1.0-4.8) 10^3/ul Absolute Monos (auto) 0.5 (0-0.8) 10^3/ul Absolute Eos (auto) 0.1 (0-0.6) 10^3/ul Absolute Basos (auto) 0.0 (0-0.2) 10^3/ul Absolute Nucleated RBC 0.0 10^3/ul Nucleated RBC % 0.0 Sodium 138 (135-145) mmol/L Potassium 3.8 (3.5-5.0) mmol/L Chloride 108 (101-111) mmol/L Carbon Dioxide 23 (22-32) mmol/L Anion Gap 7 (2-11) mmol/L BUN 8 (6-24) mg/dL Creatinine 0.75 (0.51-0.95) mg/dL Est GFR ( Amer) 107.0 (>60) Est GFR (Non-Af Amer) 88.5 (>60) BUN/Creatinine Ratio 10.7 (8-20) Glucose 98 (70-100) mg/dL Calcium 9.3 (8.6-10.3) mg/dL Total Bilirubin 0.60 (0.2-1.0) mg/dL AST 11 L (13-39) U/L ALT 11 (7-52) U/L Alkaline Phosphatase 46 (34-104) U/L Total Protein 6.4 (6.4-8.9) g/dL Albumin 4.1 (3.2-5.2) g/dL Globulin 2.3 (2-4) g/dL Albumin/Globulin Ratio 1.8 (1-3) Result Diagrams: 04/27/19 12:48 04/27/19 12:48 Lab Statement: Any lab studies that have been ordered have been reviewed, and results considered in the medical decision making process. Abdominal Pain Fem Course/Dx - Course Course Of Treatment: Patient had blood work and CT 3 days ago. She returns with continuing endometrial pain. She does have a follow-up appointment OB/ ACUTE COORDINATOR. She is concerned that this may be her gallbladder as she is having worsening pain to the right upper quadrant compared with a few days ago when she had bilateral lower quadrant pain. Continues to deny any fevers. States she is otherwise healthy other than her endometrial pain. She took ibuprofen earlier this morning with little relief. On arrival into the ED, labs are obtained. She was given Toradol, Bentyl and Benadryl. On reexamination, patient states she is feeling much improved. She denies any pain currently. Denies any nausea. Labs obtained and are unremarkable. She will be discharged home with diagnosis of endometrial pain and is encouraged ibuprofen and Bentyl at home for relief. - Diagnoses Differential Diagnosis: Positive: Appendicitis, Constipation, Pelvic Inflammatory Disease, Urinary Tract Infection Provider Diagnoses: Endometriosis Discharge ED - Sign-Out/Discharge Documenting (check all that apply): Patient Departure - Discharge Plan Condition: Stable Disposition: HOME Referrals: No Primary Care Phys,NOPCP [Primary Care Provider] - Additional Instructions: Please follow up with OBGYN and GI Continue with Bentyl and ibuprofen as needed for pain you can also try Benadryl for your symptoms - Billing Disposition and Condition Condition: STABLE Disposition: Home
[2019-04-27 14:56] VITALS: BP 120/77
== END 2019-04-27 14:59 | disposition home or self-care (01) ==
LOC: ED 11:39
DX: N80.9 Endometriosis, unspecified (principal); F41.9 Anxiety disorder, unspecified; F17.210 Nicotine dependence, cigarettes, uncomplicated; Z79.899 Other long term (current) drug therapy
CPT/HCPCS: 36415; 80053; 85025; 96372; 99283; A9270-GY; J1885

== ENCOUNTER 2019-05-20 10:01 | Observation (INO) | payer OTHER ==
[2019-05-20] MEDS ORDERED: NS 0.9% 1000 ML** 1,000 ML IV ONE ×2 (10:25→12:50)
[2019-05-20] MEDS ORDERED: Morphine 4 MG/ML VIAL (1 ml) 4 MG/ML VIAL IV ONE ×2 (10:27→11:14)
[2019-05-20] MEDS ORDERED: diPHENhydraMINE IV* 50 MG/ML 1 ml VIAL (BENADRYL) SLOW PUSH ONE ×2 (10:27→12:50)
[2019-05-20] MEDS ORDERED: Ondansetron INJ* 2 MG/ML VIAL IV ONE (10:27)
--- NOTE | 2019-05-20 10:31 | ED ---
Abdominal Pain/Female - HPI Summary HPI Summary: Patient is a 33 y/o F presenting to the ED via EMS for a chief complaint of intermittent right low pelvic pain that most recently began on the morning of . Initially, the pain started on 05/16/19. She notes the abdominal pain later radiated to the right mid abdomen. Patient also reports nausea and vomiting on route to [facility]. On 05/16/[address] Ladd, her MEDICAL BILLING SERVICE, who told the patient to take ibuprofen for the abdominal pain. Patient has a history of endometriosis and patient states this pain is consistent with past pain. Per EMS, patient took Zofran, bentyl, and ibuprofen for the abdominal pain without relief, which patient reports she last took at 08:00. She notes she vomited after taking these medications and does not think it all "stayed down." Last ibuprofen taken had a dosage of 800 mg, taken on 05/20/19. She also reports using marijuana for the abdominal pain on 05/20/19 without relief. On vitals, patient does not have a fever. Patient states Dr. Ladd prescribed continuous oral contraceptives one month ago for her endometriosis. Patient has had several visits to the [facility] for similar symptoms that were associated with her history of endometriosis. Typically, she is given IV fluids, Zofran, and pain medications for her abdominal pain. She notes having an ultrasound in the past to assess her ovaries. She denies having a menstrual period for years. Patient denies alcohol or tobacco use. Allergies to medications are denied. Patients medication reviewed this visit. - History of Current Complaint Chief Complaint: EDAbdPain Stated Complaint: ABD PAIN PER EMS Time Seen by Provider: 05/20/19 10:09 Hx Obtained From: Patient, EMS, Other: - Dianne Navarro | Reference #: [id number] Hx Last Menstrual Period: 04/24/16 Onset/Duration: Sudden Onset, Still Present Timing: Intermittent Episode Lasting Severity Initially: Severe Severity Currently: Severe Pain Intensity: 10 Pain Scale Used: 0-10 Numeric Location: Other - Right lower pelvic Radiates: Yes Radiates to: Other - Right mid abdomen Aggravating Factor(s): Nothing Alleviating Factor(s): Nothing Associated Signs and Symptoms: Positive: Nausea, Vomiting. Negative: Fever - In vitals, 97.4 F Allergies/Adverse Reactions: Allergies Allergy/AdvReac Type Severity Reaction Status Date / Time No Known Drug Allergies Allergy See Comment Verified 05/20/19 10:11 PMH/Surg Hx/FS Hx/Imm Hx Previously Healthy: Yes Endocrine/Hematology History: Reports: Hx Anemia - X 2 IN THE PAST- STATES MORE WHEN WAS YOUNGER, Other Endocrine/Hematological Disorders - endometriosis Denies: Hx Diabetes Cardiovascular History: Denies: Hx Congestive Heart Failure, Hx Hypertension History: Reports: Other Problems/Disorders - Endometriosis Denies: Hx Renal Disease Sensory History: Denies: Hx Contacts or Glasses, Hx Legally Blind, Hx Deafness, Hx Hearing Aid Opthamlomology History: Denies: Hx Contacts or Glasses, Hx Legally Blind EENT History: Denies: Hx Deafness Psychiatric History: Reports: Hx Anxiety - ROUTINE AND PRN MEDICATION FOR Denies: Hx Eating Disorder, Hx of Violent Episodes Against Others - Surgical History Surgical History: Yes Surgery Procedure, Year, and Place: Laproscopic removal of two adhesions from pelvic wall, endometriosis- September 2013. WISDOM TEETH REMOVED-REMOVED A TEEN. TONSILLECTOMY-AGE 13 Hx Anesthesia Reactions: No - Immunization History Date of Tetanus Vaccine: unknown Infectious Disease History: Yes Infectious Disease History: Reports: Hx Hepatitis - HEPATITIS C, Hx Shingles Denies: Hx Clostridium Difficile, Hx Human Immunodeficiency Virus (HIV), Hx of Known/Suspected MRSA, Hx Tuberculosis, Hx Known/Suspected VRE, Hx Known/ Suspected VRSA, History Other Infectious Disease, Traveled Outside the [place] in Last 30 Days - Family History Known Family History: Negative: Cardiac Disease - Social History Occupation: Unemployed Lives: With Family Alcohol Use: Rare Alcohol Amount: 2-3 GLASSES a week Hx Substance Use: Yes Substance Use Type: Reports: Marijuana Substance Use Comment - Amount & Last Used: daily Hx Tobacco Use: Yes Smoking Status (MU): Light Every Day Tobacco Smoker Type: Cigarettes Amount Used/How Often: 1/2 PPD Have You Smoked in the Last Year: No Review of Systems Negative: Fever - In vitals, 97.4 F Positive: Abdominal Pain - Right lower pelvic that radiates to the right mid abdomen, Vomiting, Nausea All Other Systems Reviewed And Are Negative: Yes Physical Exam - Summary Physical Exam Summary: Vital Signs Reviewed: Yes A+Ox3, vomiting, crying, obvious discomfort Eyes: Conjunctiva injected - crying, LUZMARIA. EOM intact and full, ++ tears ENT: Hearing grossly normal TM x 2 clear, mmoist, uvula midline, no exudate, no erythema Neck: Positive: Supple Respiratory: Positive: No respiratory distress, No accessory muscle use + CTA throughout no w/r Cardiovascular: RRR nl s1, s2 no m/r CBT <2 sec abd soft - examined after analgesia - BS nd no guarding, no distension, mild right lower pelvic pain Musculoskeletal Exam: YEAGER x 4 without difficulty Strength Intact, ROM Intact Neurological: Positive: Alert, + sensation throughout Psychological: Positive: Normal Response To examiner Skin: Positive: no rash, no ecchymosis Triage Information Reviewed: Yes Vital Signs On Initial Exam: Initial Vitals Temp Pulse Resp BP Pulse Ox 97.4 F 74 16 167/103 100 05/20/19 10:03 05/20/19 10:03 05/20/19 10:03 05/20/19 10:03 05/20/19 10:03 Vital Signs Reviewed: Yes Procedures - Sedation Patient Received Moderate/Deep Sedation with Procedure: No Diagnostics - Vital Signs Vital Signs Temp Pulse Resp BP Pulse Ox 05/20/19 10:03 97.4 F 74 16 167/103 100 - Laboratory Result Diagrams: 05/21/19 06:51 05/20/19 10:24 Lab Statement: Any lab studies that have been ordered have been reviewed, and results considered in the medical decision making process. - Ultrasound Transvaginal US Ultrasound Interpretation Completed By: Radiologist Summary of Ultrasound Findings: Transvaginal US IMPRESSION: No adnexal masses are noted. IUD appears in place. Reviewed by Dr. Navarro. Re-Evaluation - Re-Evaluation First Eval Re-Evaluation Time: 10:51 Change: Improved Comment: At 10:51, patients pain is improved. She was given ice chips. I will order an ultrasound eval ovary, flow, free fluid Second Eval Re-Evaluation Time: 11:14 Change: Unchanged Comment: At 11:14, patient is requesting additional pain medications. Third Eval Re-Evaluation Time: 11:28 Change: Unchanged Comment: At 11:28, patient is receiving her morphine now, will also give magnesium. no further vomiting Fourth Eval Re-Evaluation Time: 13:22 Change: Unchanged Comment: At 13:22, patient was updated on Dr. Aly's recommendations and was told to call Dr. Ladd's office to make an appointment. Fifth Eval Re-Evaluation Time: 14:03 Change: Unchanged Comment: At 14:03, patient was told she will be discharged. Labs and imaging reviewd. D/w pt homem ed - will give suppository phenerganand short course Tramadol. Pt declined Rx for Naproxyn - states has tried in the past. Also recommended addition of APAP. She was told to call Dr. Ladd for follow up. Pt hesitant for discharge but agreement - called father for ride, Pt did eat 1/2 popsicle Sixth Eval Re-Evaluation Time: 14:24 Change: Unchanged Comment: At 14:24, patient states she has an appointment with GI next week related to her repeated vomiting episodes. Pt with appt Dr. Ladd next week Sixth + Eval Re-Evaluation Time: 15:00 Comment: Pt IV removed, pt sat in wheelchair and had episode of emesis. 250cc. Will discuss with hospitalist regarding observation admission. Updated pt's father and daughter in waiting room - aware Abdominal Pain Fem Course/Dx - Course Course Of Treatment: Patient presents to respond by EMS. Patient with a history of endometriosis with a history of recurrent abdominal pain. Patient states she is being followed closely by Dr. Ladd and has recently started control tried to subdue her symptoms. Patient states she had some pain on Sunday. States she spoke to Dr. Ladd who advised her take Motrin. Patient states she was well until this morning when the pain came back. Patient states his pain is similar to pain she is experiencing the past. Patient states she's been having emesis. Patient's been taking ibuprofen, Bentyl and Zofran at home with little improvement. On exam vital signs are normal. Blood pressure lability related to today's pain. Patient with active vomiting. On exam tenderness in the right low pelvic area. No guarding or rebound. Will check ultrasound for ovarian torsion. We'll check labs urine. We'll give patient IV fluids, Benadryl, morphine, Zofran and reassess. Advised patient would only give 2 doses of morphine in the emergency department. States understanding and agreement. Istop checked. We'll reassess. - Diagnoses Provider Diagnoses: Vomiting, Abdominal pain, Endometriosis - Provider Notifications Discussed Care Of Patient With: Rip Del Angel - At 13:19, Dr. Del Angel suggests using naproxen instead of Motrin, he agrees with the medications given here. He states Dr. Ladd can review her medications. Make sure patient calls to schedule an appointment. At 14:50, Dr. Wade Wilson states he will see the patient in the ED. At 15:50, Dr. Wade Wilson reviewed the patients case and agrees to admit the patient to [facility]. Time Discussed With Above Provider: 13:19 Instructed by Provider To: Have Pt Call For Appt. Discharge ED - Sign-Out/Discharge Documenting (check all that apply): Patient Departure - Admit All imaging exams completed and their final reports reviewed: Yes - Discharge Plan Disposition: ADMITTED TO [facility] - Billing Disposition and Condition Disposition: Admitted to [facility] - Attestation Statements Document Initiated by Siennae: Yes Documenting Scribe: Kirstin Brito Provider For Whom Dougibe is Documenting (Include Credential): Dianne Navarro MD Scribe Attestation: Kirstin Rodney, scribed for Dianne Navraro MD on 05/21/19 at 0718. Scribe Documentation Reviewed: Yes Provider Attestation: The documentation as recorded by the Kirstin guerrier accurately reflects the service I personally performed and the decisions made by , Dianne Navarro MD Status of Scribe Document: Viewed
[2019-05-20 11:03] LABS: HCG Pregnancy < 0.60 mIU/mL
[2019-05-20 11:05] LABS: ABS Eosinophils 0.1 10^3/ul (0-0.6); ABS Lymphocytes 1.7 10^3/ul (1.0-4.8); ABS Monocytes 0.7 10^3/ul (0-0.8); ABS Neutrophils 7.8 10^3/ul (1.5-7.7); Eosinophil % 0.9 %; Hematocrit 42 % (35-47); Hemoglobin 14.8 g/dL (12.0-16.0); Lymphocyte % 16.1 %; Mean Corpuscular HGB Conc 35 g/dL (31-36); Mean Corpuscular Hemoglobin 32 pg (27-31); Mean Corpuscular Volume 92 fL (80-97); Mean Platelet Volume 9.2 fL (7.4-10.4); Platelet Count 246 10^3/uL (150-450); Red Cell Distribution Width 13 % (10-15); White Blood Count 10.3 10^3/uL (3.5-10.8)
[2019-05-20] MEDS ORDERED: Magnesium Sulfate 2 GM IV* 2 GM/50 ML BAG IVPB ONE (11:30)
[2019-05-20] MEDS ORDERED: Ketorolac INJ* 30 MG/ML 1 ML VIAL IV ONE (11:51)
[2019-05-20 11:55] LABS: Albumin 4.6 g/dL (3.2-5.2); Anion Gap 12 mmol/L (2-11); CO2 Carbon Dioxide 17 mmol/L (22-32); Calcium 9.4 mg/dL (8.6-10.3); Chloride 111 mmol/L (101-111); Magnesium 2.1 mg/dL (1.9-2.7); Potassium 3.9 mmol/L (3.5-5.0); Sodium 140 mmol/L (135-145)
[2019-05-20 12:01] LABS: ALT 8 U/L (7-52); AST 12 U/L (13-39); Albumin/Globulin Ratio 1.5 (1-3); Alkaline Phosphatase 46 U/L (34-104); BUN/Creatinine Ratio 14.8 (8-20); Blood Urea Nitrogen 12 mg/dL (6-24); EGFR African American 97.9 (>60); EGFR Non-African American 80.9 (>60); Glucose 115 mg/dL (70-100); Total Protein 7.6 g/dL (6.4-8.9)
[2019-05-20 13:22] LABS: Urine Appearance Cloudy; Urine Bilirubin Negative (Negative); Urine Blood 1+ (Negative); Urine Color Yellow; Urine Glucose 1+(50 mg/dL) (Negative); Urine Ketones 1+ (Negative); Urine Nitrite Negative (Negative); Urine Protein 1+(30 mg/dL) (Negative); Urine Specific Gravity 1.026 (1.010-1.030); Urine Urobilinogen Negative (Negative)
[2019-05-20 13:24] LABS: Urine Bacteria Absent (Absent); Urine Red Blood Cell Trace(0-2/hpf) (Absent); Urine Squamous Epithelial Cell Present (Absent); Urine White Blood Cell Trace(0-5/hpf) (Absent)
[2019-05-20] MEDS ORDERED: Ketorolac INJ* 30 MG/ML 1 ML VIAL IV PUSH PRN (16:04)
[2019-05-20] MEDS: NS 0.9% 1000 ML** 1,000 ML IV SCH (16:25)
[2019-05-20] MEDS: Morphine 10 MG/ML VIAL (1 ml) IV PRN ×3 (16:27→23:59)
[2019-05-20] MEDS: Ondansetron INJ* 2 MG/ML VIAL IV PRN ×2 (16:32→23:59)
[2019-05-20] MEDS ORDERED: diPHENhydraMINE IV* 50 MG/ML 1 ml VIAL (BENADRYL) IV PRN (16:40)
[2019-05-20] MEDS: Metoclopramide IV* 5 MG/ML 2 ML VIAL IV SLOW PU PRN (17:02)
--- NOTE | 2019-05-20 20:10 | HP ---
CC: Dr. Ladd, [facility]; Dr. Angel, [facility] * ADMISSION HISTORY AND PHYSICAL: DATE OF ADMISSION: 05/20/19 CHIEF COMPLAINT: Abdominal pain. HISTORY OF PRESENT ILLNESS: Ms. Sim is a 33-year-old woman with history of endometriosis, who presents to the emergency department today complaining of 10/10 right lower quadrant pain. This bout of pain began 4 days prior to admission and radiated from the right lower quadrant to right upper quadrant. The patient states she has had endometriosis for 11 years and that she has monthly bouts of similar pain. She has established care with Dr. Ladd of [facility] after an ER visit about 1 month ago. She was started on daily control pills 1 month ago. When she called Dr. Ladd's office 4 days ago for advice about abdominal pain, he advised her to take oral ibuprofen, which she has been doing. The patient had nausea yesterday and often has nausea and vomiting accompanying this abdominal pain. She tried smoking marijuana and took oral marijuana as well yesterday without relief of nausea. She does state that she uses marijuana daily and with this she could not find relief consistently for her abdominal pain and vomiting, has to get into a hot bathtub. She has been referred to Gastroenterology by Dr. Ladd and she is supposed to Dr. Valente later this month. In the ER, she was managed with Toradol and morphine IV as well as Benadryl. They had her ready for discharge and then she had vomiting prior to leaving the emergency room, so we were asked to admit the patient. The patient's women's health history includes G3, P1. She had a D and C in June 2015 and had a normal vaginal delivery in April 2017. She states that her right lower quadrant pain resolved during her and . PAST MEDICAL HISTORY: Includes endometriosis. She denies history of asthma, heart problems, hypertension. PAST SURGICAL HISTORY: She has had laparoscopy for diagnostic purposes in [place] with at [facility]. She states she was told tentatively that she had endometriosis at that point. MEDICATIONS ON ADMISSION: 1. Levonorgestrel/ethinyl estradiol (Lessina) 1 tablet daily. 2. Bentyl 10 mg p.o. q.8 hours p.r.n. abdominal pain. 3. Ibuprofen 600 mg p.o. q.6 hours p.r.n. pain. 4. Ondansetron ODT 4 mg p.o. q.8 hours p.r.n. nausea. 5. Promethazine suppository 12.5 mg LA q.6 hours p.r.n. intractable nausea. 6. Tramadol 50 mg p.o. q.8 hours p.r.n. pain. ALLERGIES: None. FAMILY HISTORY: Notable for father with alcoholism. Mother with alcoholism, hypertension. She is the only child. No siblings. Her daughter is healthy. SOCIAL HISTORY: She is disabled. She is single. She has 1 daughter. She lives with her mother and father. She smokes half a pack of cigarettes per day. Drinks alcohol rarely. Recreational drugs, only marijuana, she states about 3 g per day. REVIEW OF SYSTEMS: The patient denies any fevers or weight loss, but has had anorexia. The patient denies any chest pain or palpitations. The patient denies any shortness of breath or cough. The patient denies any diarrhea or constipation, but does have abdominal pain, nausea, vomiting as above. Remainder of 14-point review of systems is negative other than mentioned in the HPI. PHYSICAL EXAMINATION GENERAL: She is a middle-aged woman, curled up in position, crying hysterically in the bed. VITAL SIGNS: Temperature is 36.2, pulse 51 to 61, respirations are 16, blood pressure is 153/96, O2 sat is 99%. HEENT: Head is normocephalic, atraumatic. Oropharynx is moist. No lesions. NECK: Thyroid is not enlarged. No nodules. No adenopathy. No carotid bruits. LUNGS: Clear to auscultation and percussion bilaterally. CHEST: She appears to be hyperventilating. HEART: Regular rate and rhythm without murmurs or gallops. ABDOMEN: Tender in the right lower quadrant. Positive right flank tenderness. No masses. Positive bowel sounds. EXTREMITIES: No peripheral edema. Dorsalis pedis pulses 1+ bilaterally. NEUROLOGIC: Cranial nerves II through XII are intact. Motor strength is 5/5 throughout. Deep tendon reflexes are symmetric. She is alert and oriented x3. DIAGNOSTIC STUDIES/LAB DATA: Sodium 140, potassium 3.9, chloride 111, bicarb 17, BUN 12, creatinine 0.81, glucose 115, calcium 9.4, magnesium 2.1. AST 12, ALT 8. Lactic acid 1.9. HCG is negative. White count 10.3, hemoglobin 14.8, hematocrit 42%, platelets are 246. Urinalysis shows 1+ protein, 1+ ketones, 1+ blood. Transvaginal ultrasound shows no ovarian torsion. The patient had an abdominal CT on previous ER admission on 04/24/19, so this was not repeated today. ASSESSMENT AND PLAN: A 33-year-old woman presenting with abdominal pain and vomiting. Differential would include undertreated endometriosis, gallbladder dysfunction, appendicitis, cyclic vomiting syndrome, or possibly THC-induced hyperemesis. The patient will be admitted to the hospital and have IV fluids to prevent dehydration as well as pain control, antiemetics. We should consider if she does not improve quickly a GI evaluation and gallbladder investigation such as a HIDA scan. She could also have gastritis or ulcer that would not show up on CT. I discussed the case with Dr. Del Angel of Gynecology and he will be asked to see the patient for consultation as well. The question would be whether this pain is really consistent with endometriosis or whether this is more gastrointestinal or psychiatric cause. The patient was advised of the possibility of THC-induced hyperemesis and advised not to use marijuana as a treatment for nausea in her case. Code status is full. DVT prophylaxis will be with early ambulation. [id number]/[facility] #: [id number] MARILEE
--- NOTE | 2019-05-20 22:15 | CONSULT ---
Consult Consult: Mrs. Sim is a 33 y/o with known endometriosis who presented to the emergency room with several days of RLQ abdominal pain not responsive to OTC NSAID's. She was admitted to the hospitalist service for pain control. Due to her history of endometriosis I was consulted for recommendations regarding acute and snf treatment of endometriosis induced pain. Currently she has a Mirena IUD and was started on continuos Oral contraceptives this past sunday for endometriosis. She is amenorrheic due to the Mirena IUD. Past Medical History Past Medical History Comment: Endometriosis Asthma Hypertension Home Medications Mirena IUD Lessina 28 OCP's No Known Drug Allergies Past Surgical History Comment: Diagnostic laparoscopy for endometriosis Family History Comment: Non-contributory Review of Systems - Review of Systems Constitutional: Reports: no symptoms reported - Medications Respiratory: Reports: no symptoms reported Cardiology: Reports: no symptoms reported Gastrointestinal/Abdominal: Reports: abdominal pain - localized, intermittent, sharp pain., nausea Genitourinary: Reports: no symptoms reported Physical Exam - Physical Exam General Appearance: WD/WN, no apparent distress - Vital signs stable and afebrile Respiratory: Lungs clear, Normal breath sounds Gastrointestinal/Abdominal: normal bowel sounds, non tender, soft Back Exam: no vertebral tenderness Neurologic: normal mood/affect, oriented x 3 Lab Results - Lab Results Lab Results: 05/20/19 05/20/19 05/20/19 10:24 10:26 10:26 WBC 10.3 RBC 4.60 Hgb 14.8 Hct 42 MCV 92 MCH 32 H MCHC 35 RDW 13 Plt Count 246 MPV 9.2 Neut % (Auto) 76.3 Lymph % (Auto) 16.1 Alexander % (Auto) 6.4 Eos % (Auto) 0.9 Baso % (Auto) 0.3 Absolute Neuts (auto) 7.8 H Absolute Lymphs (auto) 1.7 Absolute Monos (auto) 0.7 Absolute Eos (auto) 0.1 Absolute Basos (auto) 0.0 Absolute Nucleated RBC 0.0 Nucleated RBC % 0.0 Sodium 140 Potassium 3.9 Chloride 111 Carbon Dioxide 17 L Anion Gap 12 H BUN 12 Creatinine 0.81 Est GFR ( Amer) 97.9 Est GFR (Non-Af Amer) 80.9 BUN/Creatinine Ratio 14.8 Glucose 115 H Lactic Acid 1.9 Calcium 9.4 Magnesium 2.1 Total Bilirubin 0.70 AST 12 L ALT 8 Alkaline Phosphatase 46 Total Protein 7.6 Albumin 4.6 Globulin 3.0 Albumin/Globulin Ratio 1.5 Beta HCG, Quant < 0.60 Urine Color Urine Appearance Urine pH Ur Specific Maple Urine Protein Urine Ketones Urine Blood Urine Nitrate Urine Bilirubin Urine Urobilinogen Ur Leukocyte Esterase Urine WBC (Auto) Urine RBC (Auto) Ur Squamous Epith Cells Urine Bacteria Urine Glucose 05/20/19 13:15 WBC RBC Hgb Hct MCV MCH MCHC RDW Plt Count MPV Neut % (Auto) Lymph % (Auto) Alexander % (Auto) Eos % (Auto) Baso % (Auto) Absolute Neuts (auto) Absolute Lymphs (auto) Absolute Monos (auto) Absolute Eos (auto) Absolute Basos (auto) Absolute Nucleated RBC Nucleated RBC % Sodium Potassium Chloride Carbon Dioxide Anion Gap BUN Creatinine Est GFR ( Amer) Est GFR (Non-Af Amer) BUN/Creatinine Ratio Glucose Lactic Acid Calcium Magnesium Total Bilirubin AST ALT Alkaline Phosphatase Total Protein Albumin Globulin Albumin/Globulin Ratio Beta HCG, Quant Urine Color Yellow Urine Appearance Cloudy Urine pH 5.0 Ur Specific Maple 1.026 Urine Protein 1+(30 mg/dl) A Urine Ketones 1+ A Urine Blood 1+ A Urine Nitrate Negative Urine Bilirubin Negative Urine Urobilinogen Negative Ur Leukocyte Esterase Negative Urine WBC (Auto) Trace(0-5/hpf) Urine RBC (Auto) Trace(0-2/hpf) Ur Squamous Epith Cells Present A Urine Bacteria Absent Urine Glucose 1+(50 mg/dl) A Patient Name: KUSH SIM Medical Record#: [id number] Ordering Physician: Dianne Navarro MD Acct.#: [id number] : 1985 Age: 33 Sex: F Location: EMERGENCY DEPARTMENT Exam Date: 05/20/19 1053 ADM Status: REG ER Order Information: US TRANSVAGINAL Accession Number: [id number] CPT: 54351 Indication: Amenorrhea. Real-time sonography of the pelvis was performed. The uterus measures 8.3 x 3.5 x 4.3 cm. Endometrial echo measures 0.6 cm. IUD appears in place. Right ovary measures 2.7 x 1.2 x 1.8 cm. Left ovary measures 2.8 x 1.7 x 2.0 cm. No adnexal masses are noted. IMPRESSION: No adnexal masses are noted. IUD appears in place. <Electronically signed by Ginger Elizalde MD in OV> 05/20/19 1250 Dictated By: Ginger Elizalde MD Dictated Date/Time: 05/20/19 1247 Transcribed Date/Time: 05/20/19 1247 Impression and Recommendations - Impression and Recommendations Impression and Recommendations: Impression--The Patient is at the time of consultation and evaluation by me very comfortable in no distress. Her Physical exam is unremarkable. Laboratory evaluation CBC, QHCG, Comprehensive metabolic panel and pelvic ultrasound are within normal limits, Urine analysis show blood, ketones, proteinuria, no bacteria, no leukocytes, no nitrates and she denies any urinary symptoms. Recommendations. Patient can be treated as an outpatient for endometriosis I have no additional recommendations for her care during this hospitalization. She should continue current OCP's and Nsaid's (Aleve, Motrin), we discussed use of GNRH agonist and Progestin therapy as alternative treatment for current regimen, along with relevant surgical procedures. The patient declines GNRH agonist and Depo Provera and desires surgical intervention which should be arranged as an outpatient.
[2019-05-21] MEDS: NS 0.9% 1000 ML** 1,000 ML IV SCH (00:31)
[2019-05-21 01:07] LABS: Urine Benzodiazepine Screen None Detected (None Detect); Urine Opiates Screen Presumptive Positive (None Detect)
[2019-05-21] MEDS: Metoclopramide IV* 5 MG/ML 2 ML VIAL IV SLOW PU PRN (04:32)
[2019-05-21 07:10] LABS: ABS Basophils 0.1 10^3/ul (0-0.2); ABS Lymphocytes 2.3 10^3/ul (1.0-4.8); Eosinophil % 0.3 %; Hematocrit 37 % (35-47); Hemoglobin 12.8 g/dL (12.0-16.0); Lymphocyte % 18.3 %; Mean Corpuscular HGB Conc 35 g/dL (31-36); Mean Corpuscular Hemoglobin 32 pg (27-31); Mean Corpuscular Volume 92 fL (80-97); Mean Platelet Volume 9.3 fL (7.4-10.4); Platelet Count 206 10^3/uL (150-450); Red Blood Count 4.04 10^6 /uL (3.70-4.87); Red Cell Distribution Width 13 % (10-15); White Blood Count 12.4 10^3/uL (3.5-10.8)
[2019-05-21 07:28] LABS: Albumin 4.1 g/dL (3.2-5.2); Albumin/Globulin Ratio 1.6 (1-3); BUN/Creatinine Ratio 9.4 (8-20); Calcium 8.5 mg/dL (8.6-10.3); EGFR African American 128.5 (>60); EGFR Non-African American 106.2 (>60); Globulin 2.5 g/dL (2-4); Magnesium 2.2 mg/dL (1.9-2.7); Potassium 3.7 mmol/L (3.5-5.0); Total Bilirubin 0.6 mg/dL (0.2-1.0); Total Protein 6.6 g/dL (6.4-8.9)
[2019-05-21] MEDS: Morphine 10 MG/ML VIAL (1 ml) IV PRN (07:32)
[2019-05-21] MEDS: LEVONORGESTREL ETHIN ESTRADIOL PO SCH (07:52)
[2019-05-21] MEDS ORDERED: Morphine INJ* 2 MG/ML 1 ML SYRINGE (TWO MG - NEW SYRINGE VERSION) IV PRN (08:25)
[2019-05-21] MEDS: hydrOXYzine HCL TAB* 10 MG PO PRN ×2 (09:06→15:30)
[2019-05-21] MEDS: Ondansetron ODT TAB* 4 MG SL PRN (09:06)
[2019-05-21] MEDS: Ketorolac TAB * 10 MG TAB PO SCH ×3 (10:25→22:47)
[2019-05-21] MEDS: Pantoprazole TAB * 40 MG TAB PO SCH (13:06)
[2019-05-21] MEDS: traMADol TAB* 50 MG PO PRN ×2 (13:06→19:36)
[2019-05-21] MEDS: Dicyclomine CAP* 10 MG PO PRN (14:12)
--- NOTE | 2019-05-21 18:19 | PN ---
Subjective Date of Service: 05/21/19 Interval History: Patient states that with just the use of morphine, her pain is not well controlled. Pain is triggering nausea. Spoke with her at length about her monthly cycle of pain that lands her in the emergency room for pain management and how this is not sustainable for quality of live. She agreed to follow up with Dr. Del Angel to further discuss surgical intervention. Her pain control at home consisted of ibuprofen, using the shower head with hot heat point at her abdomen, occasionally using her mom's ativan and smoking cannabis. She has been prescribed bentyl in the past for endometrial pain and found it to be helpful. Per nursing reports, her moods have been very labile, going from crying and distraught in pain to smiling and calm within the same conversation. During evaluation, patient suddenly and without warning spat up a mouth full of gastric contents three separate times and felt no worse or better before or after. No significant heaving. She admitted to occasional retrosternal pain/ burning worse after certain foods, like duy loraine, and worse with lying down. Family History: Unchanged from Admission Social History: Unchanged from Admission Past Medical History: Unchanged from Admission Objective Active Medications: Dicyclomine HCl (Bentyl Cap*) 10 mg PO AC PRN PRN Reason: NAUSEA Last Admin: 05/21/19 14:12 Dose: 10 mg Hydroxyzine HCl (Atarax Tab*) 10 mg PO Q6H PRN PRN Reason: ANXIETY Last Admin: 05/21/19 15:30 Dose: 10 mg Ketorolac Tromethamine (Toradol Tab *) 10 mg PO Q6H [facility] Stop: 05/25/19 14:59 Last Admin: 05/21/19 15:29 Dose: 10 mg Metoclopramide HCl (Reglan Iv*) 10 mg IV SLOW PU Q6H PRN PRN Reason: NAUSEA - REFRACTORY Last Admin: 05/21/19 04:32 Dose: 10 mg Morphine Sulfate (Morphine Inj (Syringe))*) 2 mg IV Q3H PRN PRN Reason: PAIN - SEVERE Non-Formulary Medication (Levonorgestrel-Ethin Estradiol [Lessina-28 Tablet]) 1 tab PO DAILY [facility] Last Admin: 05/21/19 07:52 Dose: Not Given Ondansetron HCl (Zofran Inj*) 4 mg IV Q6H PRN PRN Reason: NAUSEA Last Admin: 05/20/19 23:59 Dose: 4 mg Ondansetron HCl (Zofran Odt Tab*) 4 mg SL Q6H PRN PRN Reason: NAUSEA/VOMITING Last Admin: 05/21/19 09:06 Dose: 4 mg Pantoprazole Sodium (Protonix Tab*) 40 mg PO DAILY ISABEL Last Admin: 05/21/19 13:06 Dose: 40 mg Tramadol HCl (Ultram*) 50 mg PO Q6H PRN PRN Reason: PAIN - MODERATE Last Admin: 05/21/19 13:06 Dose: 50 mg Vital Signs - 8 hr 05/21/19 05/21/19 05/21/19 11:06 11:15 13:06 Temperature 98.3 F Pulse Rate 81 Respiratory 16 16 19 Rate Blood Pressure 121/78 (mmHg) O2 Sat by Pulse 99 Oximetry 05/21/19 05/21/19 05/21/19 14:12 14:42 15:30 Temperature Pulse Rate Respiratory 17 17 17 Rate Blood Pressure (mmHg) O2 Sat by Pulse Oximetry 05/21/19 05/21/19 16:12 17:30 Temperature Pulse Rate Respiratory 16 16 Rate Blood Pressure (mmHg) O2 Sat by Pulse Oximetry Oxygen Devices in Use Now: None Appearance: This is a well developed woman seen sitting up in bed, no acute distress noted. Eyes: No Scleral Icterus, PERRLA Ears/Nose/Mouth/Throat: NL Teeth, Lips, Gums, Clear Oropharnyx, Mucous Membranes Moist Neck: NL Appearance and Movements; NL JVP, Trachea Midline Respiratory: Symmetrical Chest Expansion and Respiratory Effort, Clear to Auscultation Cardiovascular: NL Sounds; No Murmurs; No JVD, RRR, No Edema Abdominal: NL Sounds; No Tenderness; No Distention Lymphatic: No Cervical Adenopathy Extremities: No Edema, No Clubbing, Cyanosis Skin: No Rash or Ulcers, No Nodules or Sclerosis Neurological: Alert and Oriented x 3 Lines/Tubes/Other Access: Clean, Dry and Intact Peripheral IV Result Diagrams: 05/21/19 06:51 05/21/19 06:51 Microbiology and Other Data: Microbiology 05/20/19 13:15 Urine Culture - Final Urine Assess/Plan/Problems-Billing Assessment: This is a 33 year old female with a past medical history significant for endometriosis who was admitted for pain and nausea control secondary to endometriosis on 05/20/19. - Patient Problems (1) Leukocytosis Current Visit: Yes Status: Acute Code(s): D72.829 - ELEVATED WHITE BLOOD CELL COUNT, UNSPECIFIED SNOMED Code(s): 676001580 Comment: -Without fever or other markers of infection. It is possible that this was evidence of a stress response. Will trend with labs in AM. (2) Endometriosis Current Visit: Yes Status: Acute Code(s): N80.9 - ENDOMETRIOSIS, UNSPECIFIED SNOMED Code(s): 589701813 Comment: - Admitted for pain and nausea control. Able to control her pain, nausea and anxiety with a combination of odt zofran, atarax, ketoralac, bentyl and tramadol. Understands she is to use morphine as last resort. - Will follow up with [facility] as an outpatient for surgical intervention. (3) GERD (gastroesophageal reflux disease) Current Visit: Yes Status: Acute Code(s): K21.9 - GASTRO-ESOPHAGEAL REFLUX DISEASE WITHOUT ESOPHAGITIS SNOMED Code(s): 555906764 Comment: - As evidenced by retrosternal burning and pain made wrose by certain foods and laying down. Had been treated in the past. Initiated protonix. (4) DVT prophylaxis Current Visit: Yes Status: Acute Code(s): Z29.9 - ENCOUNTER FOR PROPHYLACTIC MEASURES, UNSPECIFIED SNOMED Code(s): 273966056 Comment: - Low risk, encourage ambulation. (5) Full code status Current Visit: Yes Status: Acute Code(s): Z78.9 - OTHER SPECIFIED HEALTH STATUS SNOMED Code(s): 568103026 Status and Disposition: Dispo: Likely D/C in AM. Condition: Fair Attending: Omayra Garza
[2019-05-22] MEDS: Ketorolac TAB * 10 MG TAB PO SCH ×2 (04:06→09:35)
[2019-05-22 06:54] LABS: ABS Eosinophils 0.1 10^3/ul (0-0.6); ABS Lymphocytes 2.2 10^3/ul (1.0-4.8); ABS Monocytes 0.7 10^3/ul (0-0.8); ABS Neutrophils 5.5 10^3/ul (1.5-7.7); Eosinophil % 1.1 %; Hematocrit 36 % (35-47); Hemoglobin 12.6 g/dL (12.0-16.0); Lymphocyte % 25.8 %; Mean Corpuscular HGB Conc 35 g/dL (31-36); Mean Corpuscular Hemoglobin 32 pg (27-31); Mean Corpuscular Volume 92 fL (80-97); Mean Platelet Volume 8.9 fL (7.4-10.4); Platelet Count 183 10^3/uL (150-450); Red Blood Count 3.92 10^6 /uL (3.70-4.87); Red Cell Distribution Width 13 % (10-15); White Blood Count 8.6 10^3/uL (3.5-10.8)
[2019-05-22 07:20] LABS: BUN/Creatinine Ratio 7.7 (8-20); Calcium 8.5 mg/dL (8.6-10.3); EGFR African American 126.3 (>60); EGFR Non-African American 104.3 (>60); Potassium 3.8 mmol/L (3.5-5.0)
[2019-05-22] MEDS: Dicyclomine CAP* 10 MG PO PRN (07:29)
[2019-05-22] MEDS: traMADol TAB* 50 MG PO PRN (07:29)
[2019-05-22] MEDS: Ondansetron ODT TAB* 4 MG SL PRN (07:29)
[2019-05-22 07:46] VITALS: BP 128/87
[2019-05-22] MEDS: LEVONORGESTREL ETHIN ESTRADIOL PO SCH (09:35)
[2019-05-22] MEDS: Pantoprazole TAB * 40 MG TAB PO SCH (09:35)
--- NOTE | 2019-05-22 11:59 | DS ---
CC: Dr. Micha Ladd; Dr. Issa Valente * DISCHARGE SUMMARY: DATE OF ADMISSION: 05/20/19 DATE OF DISCHARGE: 05/22/19 PRIMARY CARE PROVIDER: None. LUMBER RACKER: Dr. Micha Ladd. SECTION FOREST FIRE WARDEN: Dr. Issa Valente. ATTENDING PHYSICIAN: Dr. Omayra Garza.* (DICTATED BY SHRADDHA BENITES NP) PRIMARY DIAGNOSIS: Intractable abdominal pain secondary to endometriosis. SECONDARY DIAGNOSIS: Gastroesophageal reflux disease. STUDIES WHILE IN THE HOSPITAL: Transvaginal ultrasound on 05/20/19 reads as no adnexal masses are noted. IUD appears in place. CONSULTATIONS WHILE IN THE HOSPITAL: Dr. Del Angel with Gastroenterology. HISTORY OF PRESENT ILLNESS AND HOSPITAL COURSE: Ms. Sim is a 33-year-old female with past medical history of severe endometriosis, who presented to the emergency room on 05/20/19 with complaints of abdominal pain. Please see the history and physical by Dr. Wilson for complete summary of the events leading up to this hospitalization. In short, the patient frequently comes into the emergency room with complaints of abdominal pain secondary to endometriosis. She complained of her typical pain on the day of presentation, which was able to be managed somewhat in the emergency room, although the patient did then begin vomiting, and because of her intractable pain and inability to tolerate p.o. intake, she was admitted by the hospitalist service. The patient was given IV fluids, pain control, and antiemetics to manage her symptoms. She was seen in consultation by Dr. Del Angel from Gynecology on . At that point, he felt as though the patient could be treated as an outpatient, he had no further recommendations for inpatient care. He recommended that she continue her current oral contraceptives and NSAIDs. He did discuss with her further medical management of endometriosis and possible surgical option, which could be arranged outpatient. The patient remained in the hospital another night to ensure resolution of symptoms. As of this morning , she reports feeling well. She has no further complaints of abdominal pain and has been able to tolerate p.o. intake. She is anxious to return home. PHYSICAL EXAMINATION: On exam, she is alert and oriented x4 with no focal neurological deficits. Heart is regular rate and rhythm without murmurs, rubs, or gallops. Lungs are clear to auscultation without rhonchi, wheezes, or rubs. Abdomen is soft, mildly tender to palpation to lower quadrant. Bowel sounds are normoactive. Physical exam is otherwise benign. Ms. Sim is stable for discharge. Most recent vitals are as follows: Temp 98.2, heart rate 78, respiratory rate 16, oxygen saturation 99% on room air, blood pressure 128/87. DISCHARGE MEDICATIONS: New: 1. Dicyclomine 10 mg p.o. q.8 hours p.r.n. pain. 2. Ondansetron 4 mg p.o. q.6 hours p.r.n. nausea, vomiting. 3. Phenergan 12.5 mg SD q.6 hours p.r.n. nausea, vomiting. 4. Tramadol 50 mg p.o. q.8 hours p.r.n. pain. Continued: 1. Levonorgestrel-ethinyl estradiol 1 tab p.o. daily. 2. Ibuprofen 600 mg p.o. q.6 hours p.r.n. pain. DISCHARGE PLAN: Ms. Sim will be discharged home. Activity will be as tolerated. Diet will be regular, as tolerated. Medications are noted above. Prescriptions were already sent in from the emergency room for dicyclomine, Zofran, Phenergan, and tramadol (only 10 tablets) and she can use these medications as needed. I have sent in another 30 tablets of Zofran for her to use as needed. She will need to follow up closely with Dr. Ladd to determine further treatment options for her endometriosis to avoid further trips to the emergency room. She does not have a primary care provider and has been set up with [facility] and has an appointment on 06/03/19 at 9 a.m. She additionally is seeing Dr. Valente and can continue seeing him as previously advised. She should return to the emergency room or nearest hospital for any worsening of symptoms, shortness of breath, lightheadedness, dizziness, chest discomfort, high fevers, chills, night sweats, loss of consciousness, any other worrisome signs or symptoms. DISCHARGE CONDITION: Stable. DISCHARGE DISPOSITION: Home. This is a summarized report of a complex medical history and hospital stay. For further details, please see the entire medical record. TIME SPENT: Approximately 40 minutes was spent on this discharge. SHRADDHA BENITES, TECHNICAL MARKETING ENGINEER [id number]/[facility] #: [id number] MARILEE
== END 2019-05-22 10:45 | disposition home or self-care (01) ==
LOC: ED 10:01 → MED 15:57
PROVIDERS: ADMIT Internal Medicine; ATTEND Internal Medicine
DX: N80.9 Endometriosis, unspecified (principal); R11.2 Nausea with vomiting, unspecified; K21.9 Gastro-esophageal reflux disease without esophagitis; D72.89 Other specified disorders of white blood cells; Z79.899 Other long term (current) drug therapy; I10 Essential (primary) hypertension; F17.210 Nicotine dependence, cigarettes, uncomplicated
CPT/HCPCS: 36415; 76830; 80048; 80053; 80307; 81003; 81015; 83605; 83735; 84702; 85025; 87086; 96361; 96365; 96375; 96376; 99284; A9270-GY; G0378; G0480; J1200; J1885; J2270; J2405; J2765; J3475

== ENCOUNTER 2019-06-16 11:51 | Emergency (ER) | payer OTHER ==
--- NOTE | 2019-06-16 11:58 | ED ---
Abdominal Pain/Female - HPI Summary HPI Summary: 33 year old F presenting to [facility] via EMS with a chief complaint of abdominal pain, diaphoresis, nausea, and vomiting. The patient rates the pain 10/10 in severity. Symptoms aggravated by nothing. Symptoms alleviated by nothing. Patient reports a history of endometriosis and that she was hospitalized here last month for similar symptoms. She states that she gets similar pain every month. She is scheduled to have an ablation on July 03. Medication list reviewed. Allergy list reviewed. - History of Current Complaint Stated Complaint: GENERAL PER PT Time Seen by Provider: 06/16/19 11:53 Hx Obtained From: Patient Hx Last Menstrual Period: 04/24/16 Onset/Duration: Still Present Timing: Constant Severity Initially: Severe Severity Currently: Severe Pain Intensity: 10 Pain Scale Used: 0-10 Numeric Location: Epigastric Aggravating Factor(s): Nothing Alleviating Factor(s): Nothing Associated Signs and Symptoms: Positive: Diaphoresis, Nausea, Vomiting Allergies/Adverse Reactions: Allergies Allergy/AdvReac Type Severity Reaction Status Date / Time No Known Drug Allergies Allergy See Comment Verified 05/20/19 10:11 Home Medications: Home Medications Levonorgestrel-Ethin Estradiol [Lessina-28 Tablet] 1 tab PO DAILY 04/27/19 [ History Confirmed 06/16/19] PMH/Surg Hx/FS Hx/Imm Hx Endocrine/Hematology History: Reports: Hx Anemia - X 2 IN THE PAST- STATES MORE WHEN WAS YOUNGER, Other Endocrine/Hematological Disorders - endometriosis Denies: Hx Diabetes Cardiovascular History: Denies: Hx Congestive Heart Failure, Hx Hypertension History: Reports: Other Problems/Disorders - Endometriosis Denies: Hx Renal Disease Sensory History: Denies: Hx Contacts or Glasses, Hx Legally Blind, Hx Deafness, Hx Hearing Aid Opthamlomology History: Denies: Hx Contacts or Glasses, Hx Legally Blind Psychiatric History: Reports: Hx Anxiety - ROUTINE AND PRN MEDICATION FOR Denies: Hx Eating Disorder, Hx of Violent Episodes Against Others - Surgical History Surgery Procedure, Year, and Place: Laproscopic removal of two adhesions from pelvic wall, endometriosis- September 2013. WISDOM TEETH REMOVED-REMOVED A TEEN. TONSILLECTOMY-AGE 13 Hx Anesthesia Reactions: No - Immunization History Date of Tetanus Vaccine: unknown Infectious Disease History: Reports: Hx Hepatitis - HEPATITIS C, Hx Shingles Denies: Hx Clostridium Difficile, Hx Human Immunodeficiency Virus (HIV), Hx of Known/Suspected MRSA, Hx Tuberculosis, Hx Known/Suspected VRE, Hx Known/ Suspected VRSA, History Other Infectious Disease - Family History Known Family History: Negative: Cardiac Disease Family History: NON CONTRIBUTORY - Social History Alcohol Use: Rare Alcohol Amount: 2-3 GLASSES a week Hx Substance Use: Yes Substance Use Type: Reports: Marijuana Substance Use Comment - Amount & Last Used: daily Hx Tobacco Use: Yes Smoking Status (MU): Light Every Day Tobacco Smoker Type: Cigarettes Amount Used/How Often: 1/2 PPD Review of Systems Positive: Skin Diaphoresis Positive: Abdominal Pain, Vomiting, Nausea All Other Systems Reviewed And Are Negative: Yes Physical Exam - Summary Physical Exam Summary: Appearance: The patient is well-nourished in no acute distress and in no acute pain. Skin: The skin is warm and dry, and skin color reflects adequate perfusion. HEENT: The head is normocephalic and atraumatic. The pupils are equal and reactive. The conjunctivae are clear and without drainage. Nares are patent and without drainage. Mouth reveals moist mucous membranes, and the throat is without erythema and exudate. The external ears are intact. The ear canals are patent and without drainage. The tympanic membranes are intact. Neck: The neck is supple with full range of motion and non-tender. There are no carotid bruits. There is no neck vein distension. Respiratory: Chest is non-tender. Lungs are clear to auscultation and breath sounds are symmetrical and equal. Cardiovascular: Heart is regular rate and rhythm. There is no murmur or rub auscultated. There is no peripheral edema and pulses are symmetrical and equal. Abdomen: The abdomen is diffusely tender. There are normal bowel sounds heard in all four quadrants and there is no organomegaly palpated. Musculoskeletal: There is no back tenderness noted. Extremities are non-tender with full range of motion. There is good capillary refill. There is no peripheral edema or calf tenderness elicited. Neurological: Patient is alert and oriented to person, place and time. The patient has symmetrical motor strength in all four extremities. Cranial nerves are grossly intact. Deep tendon reflexes are symmetrical and equal in all four extremities. Psychiatric: The patient has an appropriate affect and does not exhibit any anxiety or depression. Triage Information Reviewed: Yes Vital Signs Reviewed: Yes Procedures - Sedation Patient Received Moderate/Deep Sedation with Procedure: No Diagnostics - Laboratory Result Diagrams: 06/16/19 12:50 06/16/19 12:50 Lab Statement: Any lab studies that have been ordered have been reviewed, and results considered in the medical decision making process. - CT Abdomen/Pelvis CT CT Interpretation Completed By: Radiologist Summary of CT Findings: Moderate bladder wall thickening suggestive of cystitis. Stable mild fatty liver. IUD noted in the uterus. ED physician has reviewed this report. Abdominal Pain Fem Course/Dx - Course Course Of Treatment: Mr. Sim presented complaining of severe diffuse abdominal pain that she said was endometriosis. She gets a flareup every month and 1 month ago was admitted for 2 days here in the hospital for symptomatic treatment. At that time she was seen by Dr. Del Angel but she sees Dr. Ladd routinely. She was quite histrionic on presentation and an IV was placed and she was given medications that have worked for her in the past. She was given IM Bentyl and IV ketorolac and Zofran. She continued to complain of pain and her white blood cell count came back elevated at 13.9 with a lactic acid of 5.5. She got a shot of Dilaudid at that point with Zofran through the IV and I spoke with Dr. Wilcox insulation cupola operator for Dr. Ladd. He recommended symptomatic treatment and discharge. She did not improve the pain medication and I spoke with Dr. Tom of the hospitalist service. They came and saw her and requested CT scan of the abdomen with contrast. This returned and I spoke with the hospitalist team again. They felt that they did not a medical reason for admission at that time and recommended discharge. The patient was adamant about needing to be admitted and they were recontacted and will see the patient. - Diagnoses Provider Diagnoses: Endometriosis, Abdominal pain - Provider Notifications Discussed Care Of Patient With: Harris Wilcox Time Discussed With Above Provider: 13:14 Instructed by Provider To: Other - Discussed with Dr. Wilcox. [16:35] Spoke with Dr. Sandoval in the emergency department regarding the patient. [19:40] Spoke with the hospitalists who do not feel that the patient needs admission. [20:15] Discussed with Dr. Garza who will admit the patient. Discharge ED - Sign-Out/Discharge Documenting (check all that apply): Patient Departure - Discharge Plan Condition: Stable Disposition: ADMITTED TO [facility] Patient Education Materials: Endometriosis (ED), Abdominal Pain (ED) Referrals: Micha Ladd JR, DO [Doctor of Osteopathy] - - Billing Disposition and Condition Condition: STABLE Disposition: Admitted to [facility] - Attestation Statements Document Initiated by Scribe: Yes Documenting Scribe: Hue Robbins Provider For Whom Dougibe is Documenting (Include Credential): Ramakrishna Case MD Scribe Attestation: IHue scribed for Ramakrishna Case MD on 06/16/19 at 2118. Scribe Documentation Reviewed: Yes Provider Attestation: The documentation as recorded by the Hue guerrier accurately reflects the service I personally performed and the decisions made by me, Ramakrishna Case MD Status of Scribe Document: Viewed
[2019-06-16] MEDS ORDERED: DICYCLOMINE HCL* 20 MG/2 ML VIAL IM ONE (12:24)
[2019-06-16] MEDS ORDERED: Metoclopramide IV* 5 MG/ML 2 ML VIAL IV ONE (12:24)
[2019-06-16] MEDS ORDERED: Ketorolac INJ* 30 MG/ML 1 ML VIAL IM ONE (12:25)
[2019-06-16] MEDS ORDERED: NS 0.9% 1000 ML** 1,000 ML IV ONE ×3 (12:25→17:31)
[2019-06-16 13:00] LABS: ABS Basophils 0.1 10^3/ul (0-0.2); ABS Monocytes 0.4 10^3/ul (0-0.8); Eosinophil % 0.1 %; Hematocrit 42 % (35-47); Hemoglobin 14.4 g/dL (12.0-16.0); Lymphocyte % 7.5 %; Mean Corpuscular HGB Conc 34 g/dL (31-36); Mean Corpuscular Hemoglobin 32 pg (27-31); Mean Corpuscular Volume 93 fL (80-97); Mean Platelet Volume 9.2 fL (7.4-10.4); Platelet Count 246 10^3/uL (150-450); Red Blood Count 4.57 10^6 /uL (3.70-4.87); Red Cell Distribution Width 13 % (10-15); White Blood Count 13.5 10^3/uL (3.5-10.8)
[2019-06-16 13:14] LABS: Urine Appearance Cloudy; Urine Bilirubin Negative (Negative); Urine Blood 1+ (Negative); Urine Color Yellow; Urine Glucose 1+(50 mg/dL) (Negative); Urine Ketones 1+ (Negative); Urine Nitrite Negative (Negative); Urine Protein 1+(30 mg/dL) (Negative); Urine Specific Gravity 1.021 (1.010-1.030); Urine Urobilinogen Negative (Negative)
[2019-06-16 13:15] LABS: Urine Bacteria Absent (Absent); Urine Red Blood Cell 1+(3-5/hpf) (Absent); Urine Squamous Epithelial Cell Present (Absent); Urine White Blood Cell Trace(0-5/hpf) (Absent)
[2019-06-16 13:20] LABS: ALT 7 U/L (7-52); AST 11 U/L (13-39); Albumin 4.5 g/dL (3.2-5.2); Albumin/Globulin Ratio 1.7 (1-3); Alkaline Phosphatase 47 U/L (34-104); Anion Gap 14 mmol/L (2-11); BUN/Creatinine Ratio 11.1 (8-20); Blood Urea Nitrogen 10 mg/dL (6-24); C Reactive Protein 7.79 mg/L (<8.01); CO2 Carbon Dioxide 17 mmol/L (22-32); Calcium 9.4 mg/dL (8.6-10.3); Chloride 108 mmol/L (101-111); EGFR African American 86.7 (>60); EGFR Non-African American 71.7 (>60); Globulin 2.7 g/dL (2-4); Glucose 203 mg/dL (70-100); Potassium 3.7 mmol/L (3.5-5.0); Sodium 139 mmol/L (135-145); Total Protein 7.2 g/dL (6.4-8.9)
[2019-06-16 13:26] LABS: HCG Pregnancy < 0.60 mIU/mL
[2019-06-16] MEDS ORDERED: HYDROmorphone INJ1* 1 MG/ML SYRINGE IV SLOW PU ONE ×2 (13:36→15:24)
[2019-06-16] MEDS ORDERED: Ondansetron INJ* 2 MG/ML VIAL IV ONE ×2 (13:36→15:24)
[2019-06-16] MEDS ORDERED: Iohexol 300* (CONTRAST) 10 ML SDV IV ONE (15:58)
[2019-06-16] MEDS ORDERED: Ondansetron INJ* 2 MG/ML VIAL IV PRN (21:46)
[2019-06-16] MEDS ORDERED: Al Hydrox/Mg Hydrox/Simet LIQ* 30 ML UDC PO PRN (21:46)
[2019-06-16] MEDS ORDERED: Acetaminophen TAB* 325 MG PO PRN (21:46)
[2019-06-16] MEDS ORDERED: Ketorolac TAB * 10 MG TAB PO PRN (21:54)
[2019-06-16] MEDS ORDERED: Magnesium Hydroxide LIQ* 30 ML UDC PO PRN (21:54)
[2019-06-16] MEDS ORDERED: Senna TAB 8.6 mg* TAB PO PRN (21:54)
[2019-06-16] MEDS ORDERED: hydrOXYzine HCL TAB* 25 MG PO PRN (21:57)
[2019-06-16] MEDS ORDERED: Ondansetron ODT TAB* 4 MG SL PRN (21:57)
[2019-06-16] MEDS ORDERED: HYDROmorphone TAB* 4 MG PO PRN (21:59)
--- NOTE | 2019-06-16 22:19 | HP ---
HOSPITAL MEDICINE ADMISSION HISTORY AND PHYSICAL DATE OF ADMISSION: 06/16/19 PROVIDER: Taj Carpenter NP. ATTENDING PHYSICIAN: Dr. Case. ATTENDING PROVIDER: Dr. Tom * (dictation provided by Taj Carpenter NP). REASON FOR CONSULT: Intractable abdominal pain. HISTORY OF PRESENT ILLNESS: Ms. Sim is a 33-year-old female with past medical history of endometriosis, who presents to the hospital today with intractable abdominal pain, right lower quadrant pain that radiates into all other quadrants. Pain started 2 days ago. The patient describes as 9/10, stabbing pain that increases to 10/10; however, when she treats with ibuprofen, Bentyl, Zofran, and Phenergan, she can get it to reduce to 2/10. The patient reports that when the pain becomes severe, she does have vomiting. Pain has been 2 days in duration and it is constant with waxing and waning in severity. Pt reports that previous episodes of endometriosis have presented the same. Pt states "I know this is my endometriosis, it feels the same as last time". The patient denies any vaginal bleeding. Denies having bleeding with period for the last 5 years, but states she does have menstrual symptoms that come monthly. The patient reports that she was seen in the ER for the same complaints last month and symptoms lasted approximately 5 days. PAST MEDICAL HISTORY: Endometriosis. PAST SURGICAL HISTORY: No surgical history to report. MEDICATIONS: Outpatient: 1. Ibuprofen 600 mg p.o. every 6 hours as needed for pain. 2. Bentyl by mouth. 3. Zofran. 4. Phenergan suppository. ALLERGIES: No known drug allergies. FAMILY HISTORY: The patient's father has a history of twisted intestine, hypertension, and alcohol abuse. He is alive. The patient's mother has a history of cholecystectomy and a connective tissue disease and alcohol abuse. SOCIAL HISTORY: The patient is a half per day smoker since she was 17 years of age, rarely used alcohol. The patient does use marijuana on occasion. 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 She is not and has 1 child. REVIEW OF SYSTEMS: General: No fevers, chills, or unintended weight loss. Cardiac: Denies any chest pain or edema. Respiratory: Denies any shortness of breath, dyspnea, or orthopnea. GI: The patient reports diffuse abdominal pain. The patient reports nausea with vomiting. Denies diarrhea. : Denies gross hematuria. Denies dysuria. Neuro: No focal weakness or sensory loss. Eyes: No visual complaints. ENT: No dysphagia. Denies any nasal discharge. Denies changes in hearing. Denies ear discharge. Musculoskeletal: No arthralgias or myalgias. Skin: No rashes or lesions. Skin is intact. Psych: The patient denies any depression or anxiety. PHYSICAL EXAMINATION Vital Signs: BP 141/95, heart rate 50, temperature 97.5 temporally, respiratory rate 22, oxygen saturation 100% on room air. General: Ms. Sim is sitting up in bed. She does appear stated age. She is in acute distress related to the abdominal pain. She is yelling out in pain. She is crying. HEENT: Head is atraumatic and normocephalic, without evidence of trauma. Eyes: Pupils equal and reactive, conjunctiva pink and moist. Ears: normal, tympanic membranes intact pearly pabon with minimal cerumen. Nose: Nose without drainage. Teeth: dentition is poor with carries noted and broken front tooth. Lung sounds are clear throughout all lung tomlinson, no use of accessory muscles. Heart: S1, S2. No murmurs, rubs, or gallops. Rate is regular. Abdomen is exquisitely tender in right lower quadrant and right upper quadrant, no rebound tenderness noted. Pain is not as severe in left upper and lower quadrant to palpation. Bowel sounds are positive x4 quadrants. Extremities: No cyanosis or edema noted. Skin is intact. Neuro: She is alert and oriented x3. She moves all extremities. Equal strength in ornament setter. Pedal flexion/extension equal strength. The patient does have facial symmetry. There are no focal weaknesses to report. Extraocular movements are intact. DIAGNOSTIC STUDIES/LAB DATA: White blood cell 13.5, hemoglobin 14.4, hematocrit 42, platelets 246. Sodium 139, potassium 3.7, chloride 108, carbon dioxide 17, anion gap 14, BUN 10, creatinine 0.90, GFR 71.7. Lactic acid 5.5 initial reading, second reading is 3.3. Calcium 9.4, AST of 11, ALT 7, alk phos 47. Beta HCG quant less than 0.60. Urine: 1+ protein, 1+ ketone, 1+ blood. IMPRESSION AND PLAN: Ms. Sim is a 33-year-old female patient with history of endometriosis only, who presented today to the ER with intractable abdominal pain x2 days. ER physician, Dr. Case, has requested hospitalist consult for pain control and concerns for associated lactic acidosis and leukocytosis. The patient received CT scan while in Ed, which revealed no abnormal findings. Urinalysis is without concern for infection. Repeat lactic acid decreasing from 5.5 to 3.3 after 2 liters of NS. A third liter of fluid has been ordered while in ED. After reviewing the case with my attending it has been determined that the patient does not warrant admission to the hospital with complaints of intractable abdominal pain only, and a negative physical assessment, negative CT scan and improving lab values. TIME SPENT: Approximately 45 minutes was spent on this consultation of this patient, more than half that time was spent with the patient at bedside reviewing events leading to presenting to the ER, performing physical exam, and reviewing my plan of care. TAJ CARPENTER, LUCINA [id number]/[facility] #: [id number] PLAINVIEW HOSPITALAlexei
[2019-06-16 22:56] VITALS: BP 143/106
--- NOTE | 2019-06-17 08:43 | DS ---
DISCHARGE SUMMARY: DATE OF ADMISSION: 06/16/19 DATE OF DISCHARGE: 06/16/19 PRIMARY CARE PHYSICIAN: None. PRIMARY DIAGNOSES: 1. Endometriosis with severe pain. 2. Possible malingering disorder. DISCHARGE MEDICATIONS: None. HISTORY OF PRESENT ILLNESS AND HOSPITAL COURSE: Please see full HPI dictated by Tony Sneed on the same day. In brief, Ms. Sim is a 33-year-old woman with severe endometriosis, who is presenting to the emergency room with complaints of severe abdominal pain and inability to tolerate p.o. In the emergency room, it was discussed with the patient that it was thought that her care could be completed outpatient. The patient had been admitted 1 month ago for similar complaints, was seen by CERTIFIED RETINAL ANGIOGRAPHER, who also recommended the patient be treated on the outside during that admission and also in the emergency room. Currently, the patient has been exhibiting drug-seeking behavior, frequently thrashing and screaming in pain, but before pain medications are brought, she was noted to be smiling, talking on the phone, and laughing. In the emergency room, while the patient again was recommended to go home, she demanded to speak with Dam Tender Assistant, who offered a snf admission. The patient was explained several times that snf admission is equivalent to outpatient level of care, but she would be charged for a hospital room to receive this care, which includes only oral medications. The patient frequently screamed at staff from RNs, emergency room provider, as well as hospitalist dictating this note that people went on explaining to her the process for being admitted under snf care. The patient was furious when again explained that she would not have p.o. medications after signing snf admission paperwork and entering oral pain medication orders. The patient decided to leave the emergency room. She left before discharge paperwork could be signed. PERTINENT DIAGNOSTIC STUDIES: CBC is significant for mild leukocytosis to 13.5 consistent with mild leukocytosis seen last admission for similar issue. Lactic acid is decreased from 5.5 to 3.3 after fluids. UA notable for protein, ketones, blood, absent bacteria. Abdomen and pelvis CT with moderate bladder wall thickening suggestive of cystitis, stable mild fatty liver, IUD noted in the uterus. DISCHARGE PLAN: The patient left the emergency room before a discharge plan could be formulated. She did report that she has close followup with her outpatient medical collections specialist and it is noted that in his consultation from last month , he recommended outpatient surgical intervention for endometriosis as the patient had declined GnRH agonist and Depo-Provera. The patient was given return precautions, which include, but are not limited to fever, shaking chills. Of note, the patient did deny dysuria, suprapubic tenderness, or urinary hesitancy, so she was not given antibiotics for possible cystitis seen on CT scan. CONDITION: Good. DISPOSITION: Home. TIME SPENT: Approximately 30 minutes was spent on discharge of this patient, more than half of which was spent at bedside for interview and exam or with the care team. [id number]/[facility] #: [id number] MTDD
== END 2019-06-16 22:56 | disposition home or self-care (01) ==
LOC: ED 11:51 → UNDOADMOB 21:46 → MED 21:46 → ED 22:56 → UNDODISOB 22:57
DX: N80.9 Endometriosis, unspecified (principal); R10.9 Unspecified abdominal pain; F17.210 Nicotine dependence, cigarettes, uncomplicated; R11.2 Nausea with vomiting, unspecified; K76.0 Fatty (change of) liver, not elsewhere classified; F41.9 Anxiety disorder, unspecified; Z79.3 Long term (current) use of hormonal contraceptives; Z97.5 Presence of (intrauterine) contraceptive device; Z82.49 Family history of ischemic heart disease and other diseases of the circulatory system; Z53.29 Procedure and treatment not carried out because of patient's decision for other reasons
CPT/HCPCS: 36415; 74177; 80053; 81003; 81015; 83605; 83690; 84702; 85025; 86140; 87086; 96361; 96372; 96374; 96375; 96376; 99283; G0378; J0500; J1170; J1885; J2405; J2765; Q9967

== ENCOUNTER 2019-07-15 03:32 | Emergency (ER) | payer OTHER ==
[2019-07-15] MEDS ORDERED: Ondansetron INJ* 2 MG/ML VIAL IV ONE (03:39)
[2019-07-15] MEDS ORDERED: NS 0.9% 1000 ML** 1,000 ML IV ONE ×2 (03:39)
[2019-07-15] MEDS ORDERED: Ketorolac INJ* 30 MG/ML 1 ML VIAL IV ONE ×2 (03:39→04:40)
--- NOTE | 2019-07-15 03:50 | ED ---
GI/ HPI - HPI Summary HPI Summary: Patient is a 33 y/o F w/ Hx of endometriosis who presents to [facility] via EMS with complaints of lower abdominal pain, N/V, and vaginal bleeding. Patient states that this presentation of Sx is similar to previous episodes of her endometriosis. She states that she typically comes to the ED for IV medication when she experiences these episodes. Most recent [facility] visit for similar Sx was last month. CT abd/pel was done at the time and negative. She had an elevated lactic acid level that was resolved with fluids. Patient is prescribed Phenergan , patient states that she has had no relief in Sx with these medications. She states that she is followed by Dr. Ladd and reports there are plans for her to have surgery done to manage her endometriosis. Patient claims that she was supposed to have surgery on the but this was postponed. Patient additionally notes that she has been constipated for the past few days. EMS state that the patient was tachycardic during transport up to the 130s but most recent pulse was in mid 90s. Home medications and allergies are reviewed. Home Medications Medication Instructions Recorded Confirmed Type Levonorgestrel-Ethin Estradiol 1 tab PO QAM 04/27/19 06/23/19 History [Lessina-28 Tablet] - History of Current Complaint Time Seen by Provider: 07/15/19 03:37 Stated Complaint: ABD PAIN PER EMS Hx Obtained From: Patient, EMS Hx Last Menstrual Period: 04/24/16 Onset/Duration: Still Present Timing: Constant Severity: Severe Location of Pain: Other - lower abdomen Associated Signs and Symptoms: Positive: Nausea, Vomiting, Constipation, Abdominal Pain Additional Signs & Symptoms: Positive: Vaginal Bleeding Alleviating Factor(s): Nothing - Additional Pertinent History Primary Care Physician: [id number] - Allergy/Home Medications Allergies/Adverse Reactions: Allergies Allergy/AdvReac Type Severity Reaction Status Date / Time No Known Drug Allergies Allergy See Comment Verified 07/15/19 04:05 Home Medications: Home Medications Levonorgestrel-Ethin Estradiol [Lessina-28 Tablet] 1 tab PO QAM 04/27/19 [ History Confirmed 06/23/19] Ketorolac TAB * [Toradol TAB *] 10 mg PO Q6H PRN 7 Days #12 tab 07/15/19 [Rx] Metoclopramide TAB* [Reglan TAB*] 10 mg PO Q8H PRN 4 Days #12 tab 07/15/19 [Rx] traMADol TAB* [Ultram*] 50 mg PO Q8H PRN 3 Days #12 tab MDD 3 07/15/19 [Rx] PMH/Surg Hx/FS Hx/Imm Hx Endocrine/Hematology History: Reports: Hx Anemia - X 2 IN THE PAST- STATES MORE WHEN WAS YOUNGER, Other Endocrine/Hematological Disorders - endometriosis Denies: Hx Diabetes Cardiovascular History: Denies: Hx Congestive Heart Failure, Hx Hypertension History: Reports: Other Problems/Disorders - Endometriosis Denies: Hx Renal Disease Sensory History: Denies: Hx Contacts or Glasses, Hx Legally Blind, Hx Deafness, Hx Hearing Aid Opthamlomology History: Denies: Hx Contacts or Glasses, Hx Legally Blind Psychiatric History: Reports: Hx Anxiety - ROUTINE AND PRN MEDICATION FOR Denies: Hx Eating Disorder, Hx of Violent Episodes Against Others - Surgical History Surgery Procedure, Year, and Place: Laproscopic removal of two adhesions from pelvic wall, endometriosis- September 2013. WISDOM TEETH REMOVED-REMOVED A TEEN. TONSILLECTOMY-AGE 13 Hx Anesthesia Reactions: No - Immunization History Date of Tetanus Vaccine: unknown Infectious Disease History: Reports: Hx Hepatitis - HEPATITIS C, Hx Shingles Denies: Hx Clostridium Difficile, Hx Human Immunodeficiency Virus (HIV), Hx of Known/Suspected MRSA, Hx Tuberculosis, Hx Known/Suspected VRE, Hx Known/ Suspected VRSA, History Other Infectious Disease - Family History Known Family History: Negative: Cardiac Disease Family History: NON CONTRIBUTORY - Social History Alcohol Use: Rare Alcohol Amount: 2-3 GLASSES a week Hx Substance Use: Yes Substance Use Type: Reports: Marijuana Substance Use Comment - Amount & Last Used: daily Hx Tobacco Use: Yes Smoking Status (MU): Light Every Day Tobacco Smoker Type: Cigarettes Amount Used/How Often: 1/2 PPD Review of Systems Positive: Abdominal Pain, Vomiting, Nausea, Other - constipation Positive: other - vaginal bleeding All Other Systems Reviewed And Are Negative: Yes Physical Exam - Summary Physical Exam Summary: Constitutional: Well-developed, Well-nourished, Alert. Uncomfortable, Writhing in the stretcher Skin: Warm, Dry HENT: Normocephalic; Atraumatic Eyes: Conjunctiva normal Neck: Musculoskeletal ROM normal neck. (-) JVD, (-) Stridor, (-) Nuchal rigidity Cardio: Rhythm regular, rate normal, Heart sounds normal; Intact distal pulses; Radial pulses are 2+ and symmetric. (-) Murmur Pulmonary/Chest wall: Effort normal. (-) Respiratory distress, (-) Wheezes, (-) Rales Abd: Soft, Suprapubic and Lower Abdominal Tenderness (-) Distension, (-) Guarding, (-) Rebound Musculoskeletal: (-) Edema Lymph: (-) Cervical adenopathy Neuro: Alert, Oriented x3 Psych: Mood and affect Normal Triage Information Reviewed: Yes Vital Signs Reviewed: Yes Procedures - Sedation Patient Received Moderate/Deep Sedation with Procedure: No Diagnostics - Laboratory Result Diagrams: 07/15/19 04:10 07/15/19 04:10 Lab Statement: Any lab studies that have been ordered have been reviewed, and results considered in the medical decision making process. Re-Evaluation - Re-Evaluation Second Eval Re-Evaluation Time: 06:15 Change: Unchanged Comment: patient reporting pain, d/w patient that we could try oral pain medications, tramadol which was prescribed to her by OB. Patient refusing stating she needs IV pain medications. D/w patient that I am not comfortable giving her IV narcotics for chronic pain and that she should try something she can be discharged on. Patient initially refused to try tramadol but decided to try. While in the room, patient observed to be sticking fingers down throat after given tramadol to throw up. I instructed her to stop. Third Eval Re-Evaluation Time: 06:40 Comment: patient reported vomiting medications up, I d/w her that I witnessed her sticking her hand down her throat. She then requested a "benzo for anxiety" , I d/w her that she will not be getting any benzos. Patient visibly upset w medication management stating "I came here for IV pain medications". I d/w her that I spoke w Manager Mechanical who agreed with my plan for oral medcations. She states that she was given IV narcotics last ER visit which "gave me false hope". Again I reiterated that we could try PO medications but I would not be giving IV narcotics. Per [facility] patient exhibited similar behavior when she was seen in May. GIGU Course/Dx - Course Course Of Treatment: 33 y/o F p/w pain 2.2 endometriosis. - on arrival, patient hysterical in room, difficult to get history from. Given IVF, toradol, zofran. Patient requesting morphine as toradol wont work. Will try additional toradol, reglan and benadryl for nausea. 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 - Diagnoses Provider Diagnoses: Abdominal pain, Nausea and vomiting - Physician Notifications Discussed Care Of Patient With: Micha Ladd JR Time Discussed With Above Provider: 06:27 Instructed by Provider To: Other - Patient's case was discussed with Dr. Ladd, Dr. Ladd states that the patient should not require IV narcotic pain medication , recommends PO medication. Discharge ED - Sign-Out/Discharge Documenting (check all that apply): Patient Departure - discharge - Discharge Plan Condition: Stable Disposition: HOME Prescriptions: Ketorolac TAB * [Toradol TAB *] 10 mg PO Q6H PRN 7 Days #12 tab PRN Reason: Pain - Moderate Metoclopramide TAB* [Reglan TAB*] 10 mg PO Q8H PRN 4 Days #12 tab PRN Reason: Nausea traMADol TAB* [Ultram*] 50 mg PO Q8H PRN 3 Days #12 tab MDD 3 PRN Reason: Pain - Severe Patient Education Materials: Endometriosis (ED), Acute Nausea and Vomiting (ED) Referrals: [facility] [Outside] Additional Instructions: You were seen in the emergency department for pain from her endometriosis. You can take tramadol as needed for pain. You can take Reglan for nausea, do not take Reglan with Zofran or Phenergan. You can also take Toradol for pain Please follow up with your primary care doctor in next 2-3 days and return to emergency department for worsening or concerning symptoms. It was a pleasure taking care of you today. - Billing Disposition and Condition Condition: STABLE Disposition: Home - Attestation Statements Document Initiated by John: Yes Documenting Scribe: DAVIDSON LOPEZ Provider For Whom John is Documenting (Include Credential): MADONNA DOMINIQUE MD Scribe Attestation: DAVIDSON Rodney, scribed for MADONNA DOMINIQUE MD on 07/15/19 at 0659. Scribe Documentation Reviewed: Yes Provider Attestation: The documentation as recorded by the DAVIDSON guerrier accurately reflects the service I personally performed and the decisions made by me, MADONNA DOMINIQUE MD Status of John Document: Viewed
[2019-07-15 04:21] LABS: ABS Basophils 0.1 10^3/ul (0-0.2); ABS Eosinophils 0.1 10^3/ul (0-0.6); ABS Lymphocytes 2.1 10^3/ul (1.0-4.8); ABS Monocytes 0.6 10^3/ul (0-0.8); ABS Neutrophils 8.8 10^3/ul (1.5-7.7); Eosinophil % 0.7 %; Hematocrit 44 % (35-47); Hemoglobin 15.3 g/dL (12.0-16.0); Lymphocyte % 17.8 %; Mean Corpuscular HGB Conc 35 g/dL (31-36); Mean Corpuscular Hemoglobin 32 pg (27-31); Mean Corpuscular Volume 92 fL (80-97); Mean Platelet Volume 9.4 fL (7.4-10.4); Platelet Count 288 10^3/uL (150-450); Red Blood Count 4.77 10^6 /uL (3.70-4.87); Red Cell Distribution Width 13 % (10-15); White Blood Count 11.7 10^3/uL (3.5-10.8)
[2019-07-15] MEDS ORDERED: Metoclopramide IV* 5 MG/ML 2 ML VIAL IV SLOW PU ONE (04:33)
[2019-07-15] MEDS ORDERED: diPHENhydraMINE IV* 50 MG/ML 1 ml VIAL (BENADRYL) SLOW PUSH ONE (04:33)
[2019-07-15 04:37] LABS: ALT 10 U/L (7-52); Albumin 4.5 g/dL (3.2-5.2); Albumin/Globulin Ratio 1.5 (1-3); Alkaline Phosphatase 42 U/L (34-104); Blood Urea Nitrogen 9 mg/dL (6-24); CO2 Carbon Dioxide 19 mmol/L (22-32); Calcium 9.8 mg/dL (8.6-10.3); Chloride 106 mmol/L (101-111); EGFR African American 86.7 (>60); EGFR Non-African American 71.7 (>60); Globulin 3.1 g/dL (2-4); Glucose 190 mg/dL (70-100); Sodium 138 mmol/L (135-145); Total Protein 7.6 g/dL (6.4-8.9)
[2019-07-15 04:44] LABS: HCG Pregnancy < 0.60 mIU/mL
[2019-07-15 04:55] LABS: Anion Gap 13 mmol/L (2-11)
[2019-07-15] MEDS ORDERED: traMADol TAB* 50 MG PO ONE ×2 (04:55→06:37)
[2019-07-15] MEDS ORDERED: diPHENhydraMINE PO* 25 MG PO ONE (06:37)
[2019-07-15 06:46] VITALS: BP 155/94
== END 2019-07-15 07:15 | disposition home or self-care (01) ==
LOC: ED 03:32
DX: R10.30 Lower abdominal pain, unspecified (principal); K59.00 Constipation, unspecified; N93.9 Abnormal uterine and vaginal bleeding, unspecified; R11.2 Nausea with vomiting, unspecified; F41.9 Anxiety disorder, unspecified; F17.210 Nicotine dependence, cigarettes, uncomplicated; Z79.3 Long term (current) use of hormonal contraceptives; Z86.19 Personal history of other infectious and parasitic diseases
CPT/HCPCS: 36415; 80053; 84702; 85025; 96361; 96374; 96375; 99284; A9270-GY; J1200; J1885; J2405; J2765